=== PATIENT | male | born 1950 | race Caucasian/White ===

== ENCOUNTER 2021-06-14 18:22 | Inpatient (IN) | payer MEDICARE ==
[~2021-06-14] VITALS: Ht 177.8 cm; Wt 74.1 kg
[2021-06-14 18:29] VITALS: BP 134/74
--- NOTE | 2021-06-14 19:00 | NUR ---
The patient, ILIANA ROJAS, 70 y/o, M admitted by EVELIA LEE MD, was given written information regarding hospital policies, unit procedures and contact persons. Valuables were checked and left with him.
[2021-06-14 23:00] VITALS: BP 126/72
[2021-06-15 03:00] VITALS: BP 117/72
[2021-06-15 09:13] VITALS: BP 137/81
[2021-06-15] MEDS: ENOXAPARIN 40 MG/0.4 ML SYRINGE. SQ SCH (09:38)
[2021-06-15] MEDS: ACETAMINOPHEN 325 MG TABLET. PO PRN ×2 (09:39→20:59)
[2021-06-15] MEDS: DEXAMETHASONE SOD PHOS 4 MG/ML VIAL IVP SCH (09:40)
[2021-06-15] MEDS: AZITHROMYCIN 250 MG in IV NORMAL SALINE 250ML 250 ML IV SCH (09:41)
[2021-06-15] MEDS: cefTRIAXone IV Push 1 GM VIAL. IVP SCH (09:42)
--- NOTE | 2021-06-15 10:05 | PDOC ---
PULMONARY PROGRESS NOTES DATE: 06/15/21 TIME: 10:05 Vitals Vital Signs Date Time Temp Pulse Resp B/P (MAP) Pulse Ox O2 Delivery O2 Flow Rate FiO2 06/15/21 09:13 100.1 72 137/81 (99) 96 Nasal Cannula 5.0 100.1 06/15/21 03:00 16 Impression . Full consult dictated Acute hypoxemic respiratory failure, multifactorial Discussed with MIKEY Ge MD Jun 15, 2021 10:05
--- NOTE | 2021-06-15 10:05 | RAD ---
EXAM: Chest, single view. HISTORY: Respiratory failure. COMPARISON: 06/14/2021 FINDINGS: A frontal view of the chest is obtained. There is stable lower lobe predominant increased i nterstitial opacity. There is no consolidation, pleural effusion or pneumothorax. There is a stable c ardiac silhouette. IMPRESSION: Stable lower lobe predominant increased interstitial opacity due to infiltrate or chronic interstitial changes. There is no consolidation. Electronically signed by: Trish Dockery MD (06/15/2021 10:02 AM) [id number]
[2021-06-15 10:47] LABS: HEMATOCRIT 41.3 % (39.0-53.0); HEMOGLOBIN 14.1 g/dL (13.0-17.5); RED BLOOD COUNT 4.49 x10^6/uL (4.30-5.70); RED CELL DISTRIBUTION WIDTH 14.1 % (11.5-14.5); WHITE BLOOD COUNT 5.2 x10^3/uL (4.0-11.0)
--- NOTE | 2021-06-15 10:47 | HP ---
ADMIT DATE: 06/14/2021 HISTORY OF PRESENT ILLNESS: The patient is a 70-year-old male patient who presented to the Emergency Room of [facility] with a complaint of worsening shortness of breath. The patient took a home COVID-19 test 4 days prior to the arrival to the Emergency Room. It was positive. He had symptoms for 2 days before that. He went to his primary care physician, who started him on azithromycin, breathing treatment and prednisone; however, he came to the Emergency Room because these do not seem to be working. He is feeling more short of breath. He has been hospitalized for COVID before. He does not report any fever or chills. His statement was "I just cannot feel like I can breathe." He apparently quit smoking only about 2 weeks ago. He has been a smoker and smokes a pack a day for more than 55 years. He was evaluated in the Emergency Room of [facility] and has lab work, which showed that his white cell count normal. His platelets were in the low normal at 137,000. His chemistry was unrevealing. However, his coronavirus by PCR was positive, confirming his test at home. His chest x-ray showed the patient has normal cardiomediastinal silhouette, bibasilar subsegmental atelectasis versus infiltrate. No pleural effusion, no pneumothorax, no acute osseous abnormality. However, as he was only on 2 liters of oxygen at that time and was transferred to [facility] for further evaluation and treatment, he did receive steroids, azithromycin, ceftriaxone, Lovenox as well as breathing treatment. PAST MEDICAL HISTORY: Significant for COPD. PAST SURGICAL HISTORY: Unremarkable. ALLERGIES: HE IS ALLERGIC TO ASPIRIN. MEDICATIONS: He is not on any medication at home by prescription or [id number]. FAMILY HISTORY: Noncontributory. SOCIAL HISTORY: He is , has 3 daughters. He quit smoking about 2 weeks ago. He smoked a pack a day for almost 55 years. He quit drinking alcohol and using drugs years ago. 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 At home, he normally ambulates without assistance or assistive devices and he is not on any oxygen at home. PHYSICAL EXAMINATION: GENERAL: On arrival to the emergency room, he looked slightly tachypneic, but there was no pallor, jaundice, cyanosis. No lymphadenopathy, no thyromegaly, no jugular venous distention. No lower limb edema. VITAL SIGNS: His heart rate was 68, blood pressure was 122/67, temperature was 99.4, respiratory rate was 22 and oxygen saturation was 97% on 2 liters of oxygen. HEAD, EYES, EARS, NOSE AND THROAT: Normocephalic, atraumatic. NECK: Supple. HEART: Normal first and second heart sounds. No gallop or murmur. CHEST: Shows central trachea, equally reduced expansion, reduced air entry, vesicular breath sounds with bilateral few scattered rhonchi and very few crepitation bilaterally. ABDOMEN: Soft, nontender. NEUROLOGIC: He was grossly intact. LABORATORY DATA: His lab work on arrival to the Emergency Room showed a white cell count of 5800; hemoglobin 14.6; hematocrit 44; MCV 94 and platelet count of 137,000 with a manual differential showed 88% polymorphs, 6% lymphocytes and 6% monocytes. His chemistry showed a serum sodium 133, potassium 3.9, chloride 98, bicarbonate 26, anion gap of 9, BUN 20, creatinine 1.1. Estimated GFR was 66 mL per minute. His glucose 118, calcium was 8.5. Total bilirubin, AST, ALT, alkaline phosphatase were normal. Total protein 7.1, albumin was 3.5. His COVID-19 by PCR was positive. ASSESSMENT AND PLAN: In summary, this is a 70-year-old male patient who was admitted with COVID-19 pneumonia, acute hypoxic respiratory failure and chronic obstructive pulmonary disease exacerbation. Plan is to continue with IV antibiotic in the form of ceftriaxone and Zithromax. Continue with IV dexamethasone. Continue with Lovenox. Continue with the Combivent inhaler together with Tylenol 650 every 4 hours, Mucinex 600 mg twice a day and Singulair 10 mg at bedtime. I have consulted Dr. Desai and he was started also on remdesivir. PORFIRIO/JOANNA/GOSIA DR: PORFIRIO/desi TID: [id number]
[2021-06-15 10:52] LABS: CALCIUM 8.6 mg/dL (8.5-10.1); GFR 74.3; POTASSIUM 4.1 mmol/L (3.5-5.1)
[2021-06-15 10:57] LABS: ALBUMIN/GLOBULIN RATIO 0.8 (1.0-1.7); C-REACTIVE PROTEIN 60.8 mg/L (0-3.3); TOTAL BILIRUBIN 0.3 mg/dL (0.2-1.0); TOTAL PROTEIN 6.8 g/dL (6.4-8.2)
[2021-06-15 11:00] VITALS: BP 96/64
[2021-06-15] MEDS: IPRATROPIUM/ALBUTEROL 20/100mcg/INH INHALER. INH SCH ×3 (11:50→20:58)
[2021-06-15] MEDS ORDERED: REMDESIVIR LOAD in IV NORMAL SALINE 250ML TV IV ONE (12:00)
[2021-06-15 15:00] VITALS: BP 111/70
--- NOTE | 2021-06-15 15:23 | PN ---
DATE: 06/15/2021 SUBJECTIVE: The patient is resting, slightly propped up in bed with shaking chills. He continued to complain of shortness of breath. PHYSICAL EXAMINATION: GENERAL: When I examined him, he was clearly somewhat tachypneic, but there is no pallor, jaundice, cyanosis or thyromegaly. No jugular venous distention. No lower limb edema. VITAL SIGNS: His heart rate was 72, blood pressure was 137/81, temperature was 100.1, respiratory rate was 18 and oxygen saturation was 96% on 5 liters of oxygen. HEAD, EYES, EARS, NOSE AND THROAT: Normocephalic, atraumatic. NECK: Supple. HEART: Showed normal first and second heart sounds. No gallop or murmur. CHEST: Shows central trachea, equally reduced expansion, reduced air entry, vesicular breath sounds, very few scattered rhonchi and bilateral lower lobe crepitation posteriorly. ABDOMEN: Scaphoid, soft, nontender. NEUROLOGIC: He was grossly intact. LABORATORY DATA: His lab work is still pending. ASSESSMENT: 1. COVID-19 pneumonia. 2. Acute hypoxic respiratory failure. 3. Chronic obstructive pulmonary disease exacerbation. PLAN: To continue to do 2 sets of blood culture. We will continue with IV ceftriaxone, IV Zithromax, IV dexamethasone, IV remdesivir. Continue with DVT prophylaxis in the form of Lovenox. I will continue with Singulair, Mucinex and Tylenol. I did consult Dr. Desai to assist with his management. PORFIRIO/JOANNA/WINNIE DR: Star TID: [id number]
--- NOTE | 2021-06-15 15:29 | CONS ---
DATE OF CONSULTATION: 06/15/2021 ATTENDING PHYSICIAN: Caroline Pyle MD CONSULTING PHYSICIAN: Nicole Desai MD REASON FOR CONSULTATION: The patient is seen in Pulmonary consultation at the request of Dr. Pyle for COVID-19 positivity, increasing shortness of breath. HISTORY OF PRESENT ILLNESS: The patient is a 70-year-old that has been smoking all of his adult life, presented to [facility] with increasing shortness of breath. He was evaluated and found to have a positive COVID testing, abnormal x-ray. I was asked to see him in consultation. The patient states that he quit tobacco approximately 2 weeks ago, he was having some difficulty with shortness of breath. He normally utilizes Combivent at home. He sees Dr. Wellington Santos. The patient has not been vaccinated. He states that his at home had similar symptoms, was tested positive for COVID. PAST MEDICAL HISTORY: Tobacco-dependent COPD, unknown FEV1. No prior history of coronary artery disease. Denies any excessive alcohol intake. No musculoskeletal disorders. No endocrine disorders. PAST SURGICAL HISTORY: None. ALLERGIES: ASPIRIN. REVIEW OF SYSTEMS: As indicated above. Otherwise, a 10-point system was reviewed and negative. CURRENT MEDICATIONS: List was reviewed. I discussed the case with Dr. Pyle. We placed him on Zithromax, Rocephin, dexamethasone, Lovenox. We will initiate remdesivir. PHYSICAL EXAMINATION: GENERAL: The patient is seen during the COVID-19 pandemic. On visual examination, he was in mild respiratory distress, able to complete full sentences. He was having periods of chills, no paroxysmal breathing pattern. O2 saturation was greater than 92% on 5 liters. VITAL SIGNS: On examination, the patient had a fever of 100.1. HEENT: Eyes: The sclerae were nonicteric. NECK: Jugular venous distention was not ____. LABORATORY DATA: Labs and chest x-rays are pending. IMPRESSION: 1. Acute hypoxemic respiratory failure, multifactorial. 2. COVID-19 viral pneumonia. 3. Possible bacterial pneumonia. 4. Acute exacerbation of chronic obstructive pulmonary disease. 5. Fever secondary to above. 6. Tobacco dependence. 7. Underlying chronic obstructive pulmonary disease, unknown forced expiratory volume 1. PLAN: 1. As discussed above with Dr. Pyle, we will continue support with steroids and antibiotics. 2. Initiate remdesivir. 3. Blood cultures. 4. DVT prophylaxis. 5. Nebulized treatments. I stressed the importance of obtaining COVID-19 vaccination in approximately 8 weeks after this admission. I do appreciate the privilege in sharing the patient's care. AMINAH/RYDER/[facility] [place] DR: Cherie TID: [id number]
[2021-06-15 19:00] VITALS: BP 119/67
[2021-06-15] MEDS: MONTELUKAST SODIUM 10 MG TABLET. PO SCH (20:58)
[2021-06-15 23:05] VITALS: BP 109/62
[2021-06-16 03:00] VITALS: BP 118/70
[2021-06-16 07:00] VITALS: BP 108/72
--- NOTE | 2021-06-16 09:12 | PDOC ---
PULMONARY PROGRESS NOTES DATE: 06/16/21 TIME: 09:12 Subjective Pt. on 3 liters NC afebrile no increased SOA or cough Vitals Vital Signs Date Time Temp Pulse Resp B/P (MAP) Pulse Ox O2 Delivery O2 Flow Rate FiO2 06/16/21 07:00 98.3 68 18 108/72 (84) 96 Nasal Cannula 3.0 98.3 Comments pt seen during covid-19 pandemic visual exam performed rrr on nc 02 no distress no obvious rash or edema Labs Laboratory Tests Test 06/15/21 10:20 White Blood Count 5.2 x10^3/uL (4.0-11.0) Red Blood Count 4.49 x10^6/uL (4.30-5.70) Hemoglobin 14.1 g/dL (13.0-17.5) Hematocrit 41.3 % (39.0-53.0) Mean Corpuscular Volume 92 fL (79-100) Mean Corpuscular Hemoglobin 32 pg (25-35) Mean Corpuscular Hemoglobin Concent 34 g/dL (31-37) Red Cell Distribution Width 14.1 % (11.5-14.5) Platelet Count 134 x10^3/uL (140-400) D-Dimer (Valencia) 0.47 ug/mlFEU (0.00-0.50) Sodium Level 130 mmol/L (136-145) Potassium Level 4.1 mmol/L (3.5-5.1) Chloride Level 99 mmol/L (98-107) Carbon Dioxide Level 22 mmol/L (21-32) Anion Gap 9 (6-14) Blood Urea Nitrogen 24 mg/dL (8-26) Creatinine 1.0 mg/dL (0.7-1.3) Estimated GFR (Cockcroft-Gault) 74.3 BUN/Creatinine Ratio 24 (6-20) Glucose Level 92 mg/dL (70-99) Calcium Level 8.6 mg/dL (8.5-10.1) Total Bilirubin 0.3 mg/dL (0.2-1.0) Aspartate Amino Transf (AST/SGOT) 34 U/L (15-37) Alanine Aminotransferase (ALT/SGPT) 27 U/L (16-63) Alkaline Phosphatase 67 U/L (46-116) C-Reactive Protein, Quantitative 60.8 mg/L (0-3.3) Total Protein 6.8 g/dL (6.4-8.2) Albumin 3.0 g/dL (3.4-5.0) Albumin/Globulin Ratio 0.8 (1.0-1.7) Laboratory Tests Test 06/15/21 10:20 White Blood Count 5.2 x10^3/uL (4.0-11.0) Red Blood Count 4.49 x10^6/uL (4.30-5.70) Hemoglobin 14.1 g/dL (13.0-17.5) Hematocrit 41.3 % (39.0-53.0) Mean Corpuscular Volume 92 fL (79-100) Mean Corpuscular Hemoglobin 32 pg (25-35) Mean Corpuscular Hemoglobin Concent 34 g/dL (31-37) Red Cell Distribution Width 14.1 % (11.5-14.5) Platelet Count 134 x10^3/uL (140-400) D-Dimer (Valencia) 0.47 ug/mlFEU (0.00-0.50) Sodium Level 130 mmol/L (136-145) Potassium Level 4.1 mmol/L (3.5-5.1) Chloride Level 99 mmol/L (98-107) Carbon Dioxide Level 22 mmol/L (21-32) Anion Gap 9 (6-14) Blood Urea Nitrogen 24 mg/dL (8-26) Creatinine 1.0 mg/dL (0.7-1.3) Estimated GFR (Cockcroft-Gault) 74.3 BUN/Creatinine Ratio 24 (6-20) Glucose Level 92 mg/dL (70-99) Calcium Level 8.6 mg/dL (8.5-10.1) Total Bilirubin 0.3 mg/dL (0.2-1.0) Aspartate Amino Transf (AST/SGOT) 34 U/L (15-37) Alanine Aminotransferase (ALT/SGPT) 27 U/L (16-63) Alkaline Phosphatase 67 U/L (46-116) C-Reactive Protein, Quantitative 60.8 mg/L (0-3.3) Total Protein 6.8 g/dL (6.4-8.2) Albumin 3.0 g/dL (3.4-5.0) Albumin/Globulin Ratio 0.8 (1.0-1.7) Impression . IMPRESSION: 1. Acute hypoxemic respiratory failure, multifactorial. 2. COVID-19 viral pneumonia. 3. Possible bacterial pneumonia. 4. Acute exacerbation of chronic obstructive pulmonary disease. 5. Fever secondary to above. 6. Tobacco dependence. 7. Underlying chronic obstructive pulmonary disease, unknown forced expiratory volume 1. Plan . Updated 06/16/21 Continue supplemental oxygen to keep sats above 92%, on 3 liters NC Continue remdesivir. Continue steroids started on 06/15/21 Continue ABX on azithro/rocephin BC NGTD DVT/GI PPX:lovenox D/W RN 06/15/21PLAN: 1. As discussed above with Dr. Pyle, we will continue support with steroids and antibiotics. 2. Initiate remdesivir. 3. Blood cultures. 4. DVT prophylaxis. 5. Nebulized treatments. MIKEY CONTI MD Jun 16, 2021 09:12
[2021-06-16] MEDS: IPRATROPIUM/ALBUTEROL 20/100mcg/INH INHALER. INH SCH ×4 (09:56→21:07)
[2021-06-16] MEDS: ENOXAPARIN 40 MG/0.4 ML SYRINGE. SQ SCH (09:57)
[2021-06-16] MEDS: cefTRIAXone IV Push 1 GM VIAL. IVP SCH (09:57)
[2021-06-16] MEDS: DEXAMETHASONE SOD PHOS 4 MG/ML VIAL IVP SCH (09:57)
[2021-06-16 09:58] LABS: HEMATOCRIT 41.2 % (39.0-53.0); RED BLOOD COUNT 4.49 x10^6/uL (4.30-5.70); RED CELL DISTRIBUTION WIDTH 13.9 % (11.5-14.5); WHITE BLOOD COUNT 3.8 x10^3/uL (4.0-11.0)
[2021-06-16 10:29] LABS: ALBUMIN 2.8 g/dL (3.4-5.0); ALBUMIN/GLOBULIN RATIO 0.7 (1.0-1.7); CALCIUM 8.6 mg/dL (8.5-10.1); CREATININE 0.9 mg/dL (0.7-1.3); GFR 83.9; POTASSIUM 4.1 mmol/L (3.5-5.1); TOTAL BILIRUBIN 0.3 mg/dL (0.2-1.0); TOTAL PROTEIN 6.6 g/dL (6.4-8.2)
[2021-06-16 11:00] VITALS: BP 110/65
[2021-06-16] MEDS: AZITHROMYCIN 250 MG in IV NORMAL SALINE 250ML 250 ML IV SCH (11:34)
[2021-06-16] MEDS: REMDESIVIR 100mg in NORMAL SALINE 250ML X 4 DAYS IV SCH (12:50)
--- NOTE | 2021-06-16 13:47 | NUR ---
SW following. Discussed with RN, pt from home, 3L (does not use oxygen at home), COVID-19 positive, ad rodrick. Pulmonology following. RN advised no SW needs at this time. SW will continue to follow.
[2021-06-16 15:00] VITALS: BP 127/67
--- NOTE | 2021-06-16 16:39 | PN ---
DATE: 06/16/2021 ____ Continue with IV dexamethasone. Continue with remdesivir. Continue with Lovenox for DVT prophylaxis. Continue with Mucinex and Singulair. Continue with oxygen supplementation as needed. PORFIRIO/JOANNA/[facility] [place] DR: PORFIRIO/desi TID: [id number]
[2021-06-16 19:00] VITALS: BP 126/84
[2021-06-16] MEDS: MONTELUKAST SODIUM 10 MG TABLET. PO SCH (21:06)
[2021-06-16 23:00] VITALS: BP 138/78
[2021-06-17 03:00] VITALS: BP 122/77
[2021-06-17 07:00] VITALS: BP 123/79
[2021-06-17] MEDS: IPRATROPIUM/ALBUTEROL 20/100mcg/INH INHALER. INH SCH ×4 (08:11→20:25)
[2021-06-17] MEDS: cefTRIAXone IV Push 1 GM VIAL. IVP SCH ×2 (09:00→09:08)
[2021-06-17] MEDS: ENOXAPARIN 40 MG/0.4 ML SYRINGE. SQ SCH (09:08)
[2021-06-17] MEDS: DEXAMETHASONE SOD PHOS 4 MG/ML VIAL IVP SCH (09:08)
--- NOTE | 2021-06-17 09:13 | NUR ---
This RN informed Dr. Pyle of pt's new rash noted to posterior upper legs. Dr. Pyle in room, updated this RN he is going to discontinue Rocephin due to rash. Pt's 0900 dose of Rocephin nonadministered by this RN. Will await new orders.
--- NOTE | 2021-06-17 09:59 | PN ---
DATE: 06/17/2021 SUBJECTIVE: The patient is resting, slightly popped up in bed, complaining of a pruritic skin rash mostly on his lower extremities and also on the torso. He also stated that he has been coughing the whole night. Denied any chest pain. Did complain of shortness of breath. PHYSICAL EXAMINATION: GENERAL: When I saw him, he was somewhat cachectic, but there was no pallor, jaundice, cyanosis or thyromegaly. No jugular venous distention. No lower limb edema. VITAL SIGNS: His heart rate was 60, blood pressure is 122/77, temperature was 98, respiratory rate was 18 and oxygen saturation was only 84% on 3 liters of oxygen when I saw him. I did increase his oxygen to 5, 10, and 15 and he continued to do poorly and was only at 89%, so we will start him on 100% nonrebreather mask. We did consult the customer service advocate and the plan is to put him on BiPAP or Vapotherm. HEAD, EYES, EARS, NOSE, AND THROAT: Normocephalic, atraumatic. NECK: Supple. HEART: Showed normal first and second heart sounds, no gallop or murmur. CHEST: Shows central trachea, equally reduced chest expansion, reduced air entry, vesicular breath sounds. Very few scattered rhonchi. I could not appreciate any crepitation. ABDOMEN: Scaphoid, soft, nontender. NEUROLOGIC: He was grossly intact. LABORATORY DATA: His lab work as of yesterday showed a white cell count of 3800, hemoglobin 14, hematocrit 41, MCV 92 and platelet count of 131,000. His serum sodium was 134, potassium 4.1, chloride 100, bicarbonate 25, anion gap of 9, BUN 24, creatinine 0.9. Estimated GFR was 84 mL per minute. His glucose was 140, calcium was 8.6. Total bilirubin, AST, ALT, alkaline phosphatase were normal. Total protein 6.6, albumin 2.8 as of yesterday. His C-reactive protein was 60.8 and his D-dimer was 0.47. His chest x-ray showed stable lower lobe predominantly increased interstitial opacity. There is no consolidation, pleural effusion, or pneumothorax. Stable cardiac silhouette. ASSESSMENT: This is a 70-year-old male patient who was admitted with: 1. COVID-19 pneumonia. 2. Acute hypoxic respiratory failure. 3. Chronic obstructive pulmonary disease exacerbation. 4. SOME FORM OF ALLERGIC REACTION, MOST LIKELY TO ROCEPHIN. PLAN: To discontinue the ceftriaxone and Zithromax. Continue with dexamethasone. Continue with remdesivir. Continue with DVT prophylaxis. He is also continue with Singulair, Mucinex and Tylenol. I will start him on Levaquin and I have spoken with the customer service advocate and he recommended starting him on either BiPAP machine and/or Vapotherm. PORFIRIO/[facility] DR: Star TID: [id number]
--- NOTE | 2021-06-17 10:06 | RAD ---
EXAM: Chest, single view. HISTORY: Hypoxia. COMPARISON: 06/15/2021 FINDINGS: A frontal view of the chest is obtained. There has been interval increase in right and left lower lobe interstitial infiltrate superimposed on emphysema and chronic interstitial changes. There is no pleural effusion or pneumothorax. There is a stable cardiac silhouette. IMPRESSION: Increase in right greater than left lower lobe interstitial infiltrate superimposed on em physema and chronic interstitial changes. Electronically signed by: Trish Dockery MD (06/17/2021 10:03 AM) [id number]
--- NOTE | 2021-06-17 10:15 | PDOC ---
PULMONARY PROGRESS NOTES DATE: 06/17/21 TIME: 10:12 Subjective pt with increasing dyspnea/ hypoxia on 15 litres O2 Vitals Vital Signs Date Time Temp Pulse Resp B/P (MAP) Pulse Ox O2 Delivery O2 Flow Rate FiO2 06/17/21 08:21 Nasal Cannula 3.0 06/17/21 07:00 97.8 67 18 123/79 (94) 90 97.8 Comments pt seen during covid-19 pandemic visual exam performed rrr on nc 02 no distress no obvious rash or edema Labs Laboratory Tests Test 06/15/21 10:20 06/16/21 09:30 White Blood Count 5.2 x10^3/uL (4.0-11.0) 3.8 x10^3/uL (4.0-11.0) Red Blood Count 4.49 x10^6/uL (4.30-5.70) 4.49 x10^6/uL (4.30-5.70) Hemoglobin 14.1 g/dL (13.0-17.5) 14.0 g/dL (13.0-17.5) Hematocrit 41.3 % (39.0-53.0) 41.2 % (39.0-53.0) Mean Corpuscular Volume 92 fL (79-100) 92 fL (79-100) Mean Corpuscular Hemoglobin 32 pg (25-35) 31 pg (25-35) Mean Corpuscular Hemoglobin Concent 34 g/dL (31-37) 34 g/dL (31-37) Red Cell Distribution Width 14.1 % (11.5-14.5) 13.9 % (11.5-14.5) Platelet Count 134 x10^3/uL (140-400) 131 x10^3/uL (140-400) D-Dimer (Valencia) 0.47 ug/mlFEU (0.00-0.50) Sodium Level 130 mmol/L (136-145) 134 mmol/L (136-145) Potassium Level 4.1 mmol/L (3.5-5.1) 4.1 mmol/L (3.5-5.1) Chloride Level 99 mmol/L (98-107) 100 mmol/L (98-107) Carbon Dioxide Level 22 mmol/L (21-32) 25 mmol/L (21-32) Anion Gap 9 (6-14) 9 (6-14) Blood Urea Nitrogen 24 mg/dL (8-26) 24 mg/dL (8-26) Creatinine 1.0 mg/dL (0.7-1.3) 0.9 mg/dL (0.7-1.3) Estimated GFR (Cockcroft-Gault) 74.3 83.9 BUN/Creatinine Ratio 24 (6-20) 27 (6-20) Glucose Level 92 mg/dL (70-99) 140 mg/dL (70-99) Calcium Level 8.6 mg/dL (8.5-10.1) 8.6 mg/dL (8.5-10.1) Total Bilirubin 0.3 mg/dL (0.2-1.0) 0.3 mg/dL (0.2-1.0) Aspartate Amino Transf (AST/SGOT) 34 U/L (15-37) 54 U/L (15-37) Alanine Aminotransferase (ALT/SGPT) 27 U/L (16-63) 54 U/L (16-63) Alkaline Phosphatase 67 U/L (46-116) 65 U/L (46-116) C-Reactive Protein, Quantitative 60.8 mg/L (0-3.3) Total Protein 6.8 g/dL (6.4-8.2) 6.6 g/dL (6.4-8.2) Albumin 3.0 g/dL (3.4-5.0) 2.8 g/dL (3.4-5.0) Albumin/Globulin Ratio 0.8 (1.0-1.7) 0.7 (1.0-1.7) Impression . IMPRESSION: 1. Acute hypoxemic respiratory failure, multifactorial. 2. COVID-19 viral pneumonia. 3. Possible bacterial pneumonia. 4. Acute exacerbation of chronic obstructive pulmonary disease. 5. Fever secondary to above. 6. Tobacco dependence. 7. Underlying chronic obstructive pulmonary disease, unknown forced expiratory volume 1. Plan . Updated 06/17/21 transfer to 6 floor, on vapotherm, keep sats above 92%, Continue remdesivir. Continue steroids started on 06/15/21 Continue ABX on azithro/rocephin BC NGTD DVT/GI PPX:lovenox D/W RN d/w Dr Pyle code status discussed. He wants to think about DNR Updated 06/16/21 Continue supplemental oxygen to keep sats above 92%, on 3 liters NC Continue remdesivir. Continue steroids started on 06/15/21 Continue ABX on azithro/rocephin BC NGTD DVT/GI PPX:lovenox D/W RN 06/15/21PLAN: 1. As discussed above with Dr. Pyle, we will continue support with steroids and antibiotics. 2. Initiate remdesivir. 3. Blood cultures. 4. DVT prophylaxis. 5. Nebulized treatments. RICO WISE MD Jun 17, 2021 10:15
--- NOTE | 2021-06-17 10:26 | NUR ---
Dr. Pyle requested sat probe from this RN to perform a spot check spO2 on pt at approx 0920. Dr. Pyle reported that pt's spO2 was 84% on 3L NC. Pt's oxygen increased to 5L NC, no response noted. Dr. Pyle then increased pt to 15L NC and pt's spO2 increased to 90%. This RN placed pt on 15L nonrebreather and pt's spO2 further increased to 94%. Dr. Topete came into pt's room and gave orders for vapotherm. Orders for STAT chest xray placed by Dr. Pyle. Dr. Pyle called and updated Farzana, pt's daughter. This RN also spoke with and updated Farzana. This RN notified Josefina RT and Rebeca, nursing supervisor beater room. Pt to transfer to room 671.
--- NOTE | 2021-06-17 11:40 | NUR ---
Pt transferred to room 671 by wheelchair at 1130. This RN called and updated Farzana, pt's daughter of transfer at [phone]. Pt's belongings sent with pt at time of transfer.
--- NOTE | 2021-06-17 12:47 | NUR ---
SW following. Discussed with RN, pt transferring to [address] [place] [address] due to going from 3L to a 15L NRB and still needing more oxygen. Pt needing Vapotherm or Bipap. Pt is ad rodrick. RN advised no SW needs at this time. SW will continue to follow.
[2021-06-17] MEDS: REMDESIVIR 100mg in NORMAL SALINE 250ML X 4 DAYS IV SCH (13:45)
[2021-06-17 15:00] VITALS: BP 111/74
[2021-06-17 19:05] VITALS: BP 115/73
[2021-06-17] MEDS: LACTOBACILLUS RHAMNOSUS GG 1 CAPSULE. PO SCH (20:25)
[2021-06-17] MEDS: NICOTINE 21MG PATCH. TD SCH (20:25)
[2021-06-17] MEDS: MONTELUKAST SODIUM 10 MG TABLET. PO SCH (20:25)
[2021-06-17 23:15] VITALS: BP 121/75
[2021-06-18 02:08] VITALS: BP 119/78
[2021-06-18 07:00] VITALS: BP 136/80
[2021-06-18 07:20] LABS: BASO % 0 % (0-3); EOS % 0 % (0-3); HEMATOCRIT 41.8 % (39.0-53.0); HEMOGLOBIN 14.1 g/dL (13.0-17.5); LYMPH # 0.6 x10^3/uL (1.0-4.8); LYMPH % 14 % (24-48); MEAN CORPUSCULAR HEMOGLOBIN 31 pg (25-35); MEAN CORPUSCULAR HGB CONC 34 g/dL (31-37); MEAN CORPUSCULAR VOLUME 92 fL (79-100); MONO # 0.7 x10^3/uL (0.0-1.1); MONO % 16 % (0-9); NEUT # 3.1 x10^3/uL (1.8-7.7); NEUT % 70 % (31-73); PLATELET COUNT 161 x10^3/uL (140-400); RED BLOOD COUNT 4.55 x10^6/uL (4.30-5.70); RED CELL DISTRIBUTION WIDTH 14.2 % (11.5-14.5); WHITE BLOOD COUNT 4.5 x10^3/uL (4.0-11.0)
[2021-06-18 07:49] LABS: ALBUMIN 2.7 g/dL (3.4-5.0); ALBUMIN/GLOBULIN RATIO 0.8 (1.0-1.7); CALCIUM 8.8 mg/dL (8.5-10.1); CREATININE 0.8 mg/dL (0.7-1.3); GFR 96.1; POTASSIUM 4.5 mmol/L (3.5-5.1); TOTAL BILIRUBIN 0.3 mg/dL (0.2-1.0); TOTAL PROTEIN 6.2 g/dL (6.4-8.2)
[2021-06-18] MEDS: IPRATROPIUM/ALBUTEROL 20/100mcg/INH INHALER. INH SCH ×3 (09:10→16:51)
[2021-06-18] MEDS: DEXAMETHASONE SOD PHOS 4 MG/ML VIAL IVP SCH (09:14)
[2021-06-18] MEDS: LACTOBACILLUS RHAMNOSUS GG 1 CAPSULE. PO SCH ×2 (09:15→22:08)
[2021-06-18] MEDS: NICOTINE 21MG PATCH. TD SCH (09:16)
[2021-06-18] MEDS: ENOXAPARIN 40 MG/0.4 ML SYRINGE. SQ SCH (09:16)
--- NOTE | 2021-06-18 10:03 | PDOC ---
PULMONARY PROGRESS NOTES DATE: 06/18/21 TIME: 09:59 Subjective Patient appears more comfortable. Currently on 100% FiO2 via Vapotherm and at 40 L flow. Denies any increased shortness of breath Vitals Vital Signs Date Time Temp Pulse Resp B/P (MAP) Pulse Ox O2 Delivery O2 Flow Rate FiO2 06/18/21 07:15 91 VAPOTHERM 40.0 06/18/21 07:00 97.6 65 18 136/80 (98) 97.6 Comments pt seen during covid- pandemic visual exam performed rrr on no distress no obvious rash or edema Labs Laboratory Tests Test 06/18/21 07:00 White Blood Count 4.5 x10^3/uL (4.0-11.0) Red Blood Count 4.55 x10^6/uL (4.30-5.70) Hemoglobin 14.1 g/dL (13.0-17.5) Hematocrit 41.8 % (39.0-53.0) Mean Corpuscular Volume 92 fL (79-100) Mean Corpuscular Hemoglobin 31 pg (25-35) Mean Corpuscular Hemoglobin Concent 34 g/dL (31-37) Red Cell Distribution Width 14.2 % (11.5-14.5) Platelet Count 161 x10^3/uL (140-400) Neutrophils (%) (Auto) 70 % (31-73) Lymphocytes (%) (Auto) 14 % (24-48) Monocytes (%) (Auto) 16 % (0-9) Eosinophils (%) (Auto) 0 % (0-3) Basophils (%) (Auto) 0 % (0-3) Neutrophils # (Auto) 3.1 x10^3/uL (1.8-7.7) Lymphocytes # (Auto) 0.6 x10^3/uL (1.0-4.8) Monocytes # (Auto) 0.7 x10^3/uL (0.0-1.1) Eosinophils # (Auto) 0.0 x10^3/uL (0.0-0.7) Basophils # (Auto) 0.0 x10^3/uL (0.0-0.2) Sodium Level 133 mmol/L (136-145) Potassium Level 4.5 mmol/L (3.5-5.1) Chloride Level 100 mmol/L (98-107) Carbon Dioxide Level 23 mmol/L (21-32) Anion Gap 10 (6-14) Blood Urea Nitrogen 26 mg/dL (8-26) Creatinine 0.8 mg/dL (0.7-1.3) Estimated GFR (Cockcroft-Gault) 96.1 BUN/Creatinine Ratio 33 (6-20) Glucose Level 123 mg/dL (70-99) Calcium Level 8.8 mg/dL (8.5-10.1) Total Bilirubin 0.3 mg/dL (0.2-1.0) Aspartate Amino Transf (AST/SGOT) 67 U/L (15-37) Alanine Aminotransferase (ALT/SGPT) 86 U/L (16-63) Alkaline Phosphatase 67 U/L (46-116) Total Protein 6.2 g/dL (6.4-8.2) Albumin 2.7 g/dL (3.4-5.0) Albumin/Globulin Ratio 0.8 (1.0-1.7) Laboratory Tests Test 06/18/21 07:00 White Blood Count 4.5 x10^3/uL (4.0-11.0) Red Blood Count 4.55 x10^6/uL (4.30-5.70) Hemoglobin 14.1 g/dL (13.0-17.5) Hematocrit 41.8 % (39.0-53.0) Mean Corpuscular Volume 92 fL (79-100) Mean Corpuscular Hemoglobin 31 pg (25-35) Mean Corpuscular Hemoglobin Concent 34 g/dL (31-37) Red Cell Distribution Width 14.2 % (11.5-14.5) Platelet Count 161 x10^3/uL (140-400) Neutrophils (%) (Auto) 70 % (31-73) Lymphocytes (%) (Auto) 14 % (24-48) Monocytes (%) (Auto) 16 % (0-9) Eosinophils (%) (Auto) 0 % (0-3) Basophils (%) (Auto) 0 % (0-3) Neutrophils # (Auto) 3.1 x10^3/uL (1.8-7.7) Lymphocytes # (Auto) 0.6 x10^3/uL (1.0-4.8) Monocytes # (Auto) 0.7 x10^3/uL (0.0-1.1) Eosinophils # (Auto) 0.0 x10^3/uL (0.0-0.7) Basophils # (Auto) 0.0 x10^3/uL (0.0-0.2) Sodium Level 133 mmol/L (136-145) Potassium Level 4.5 mmol/L (3.5-5.1) Chloride Level 100 mmol/L (98-107) Carbon Dioxide Level 23 mmol/L (21-32) Anion Gap 10 (6-14) Blood Urea Nitrogen 26 mg/dL (8-26) Creatinine 0.8 mg/dL (0.7-1.3) Estimated GFR (Cockcroft-Gault) 96.1 BUN/Creatinine Ratio 33 (6-20) Glucose Level 123 mg/dL (70-99) Calcium Level 8.8 mg/dL (8.5-10.1) Total Bilirubin 0.3 mg/dL (0.2-1.0) Aspartate Amino Transf (AST/SGOT) 67 U/L (15-37) Alanine Aminotransferase (ALT/SGPT) 86 U/L (16-63) Alkaline Phosphatase 67 U/L (46-116) Total Protein 6.2 g/dL (6.4-8.2) Albumin 2.7 g/dL (3.4-5.0) Albumin/Globulin Ratio 0.8 (1.0-1.7) Impression . IMPRESSION: 1. Acute hypoxemic respiratory failure due to ARDS/acute lung injury from COVID-19 viral pneumonia. 2. COVID-19 viral pneumonia. 3. Possible bacterial pneumonia. 4. Acute exacerbation of chronic obstructive pulmonary disease. 5. Fever secondary to above. 6. Tobacco dependence. 7. Underlying chronic obstructive pulmonary disease, unknown forced expiratory volume 1. Plan . Updated 06/17/21 Tolerating Vapotherm well. On 100% FiO2 and 40 L flow. Continue remdesivir. Continue steroids started on 06/15/21 Continue ABX on azithro/rocephin BC NGTD DVT/GI PPX:lovenox D/W RN d/w Dr Pyle code status discussed. He wants to think about DNR Updated 06/17/21 transfer to 6 floor, on vapotherm, keep sats above 92%, Continue remdesivir. Continue steroids started on 06/15/21 Continue ABX on azithro/rocephin BC NGTD DVT/GI PPX:lovenox D/W RN d/w Dr Pyle code status discussed. He wants to think about DNR Updated 06/16/21 Continue supplemental oxygen to keep sats above 92%, on 3 liters NC Continue remdesivir. Continue steroids started on 06/15/21 Continue ABX on azithro/rocephin BC NGTD DVT/GI PPX:lovenox D/W RN 06/15/21PLAN: 1. As discussed above with Dr. Pyle, we will continue support with steroids and antibiotics. 2. Initiate remdesivir. 3. Blood cultures. 4. DVT prophylaxis. 5. Nebulized treatments. RICO WISE MD Jun 18, 2021 10:03
[2021-06-18 10:29] LABS: PLT ESTIMATE ADEQUATE (ADEQUATE)
--- NOTE | 2021-06-18 10:33 | PN ---
DATE: 06/18/2021 SUBJECTIVE: The patient is resting slightly up in bed, on Vapotherm, maintaining his oxygen saturation at 89-90% on 40 liters of oxygen and FiO2 of 100%. On questioning, however, he denied any chest pain, shortness of breath, cough or phlegm. However, he could not sleep the whole night last night because of the noises made by the machine. Also complained of anorexia and poor appetite. PHYSICAL EXAMINATION: GENERAL: When I examined him, he looked cachectic. There is no pallor, jaundice, cyanosis or thyromegaly. No jugular venous distention. No lower limb edema. VITAL SIGNS: His heart rate was 65, blood pressure is 136/80, temperature 97.6, respiratory rate was 18 and oxygen saturation was 90% on Vapotherm at a flow rate of 40 liters and FiO2 of 100%. HEAD, EYES, EARS, NOSE, AND THROAT: Normocephalic, atraumatic. NECK: Supple. HEART: Normal first and second heart sounds. No gallop or murmur. CHEST: Shows central trachea, equally reduced expansion, reduced air entry, vesicular breath sounds, very few scattered rhonchi, could not appreciate any crepitation. ABDOMEN: Distended, soft, nontender. NEUROLOGIC: He was grossly intact. His intake was 1200, output was 1100. LABORATORY DATA: As of this morning, his white cell count was 4500, hemoglobin 14, hematocrit 42, MCV 92 and platelet count of 161,000. His serum sodium was 133, potassium 4.5, chloride 100, bicarbonate 23, anion gap of 10, BUN 26, creatinine 0.8. Estimated GFR was 96 mL per minute. His glucose 123, calcium was 8.8. Total bilirubin and alkaline phosphatase are normal. AST and ALT slightly elevated. Total protein 6.2, albumin 2.7. ASSESSMENT: 1. Acute hypoxic respiratory failure. 2. COVID-19 pneumonia. 3. Chronic obstructive pulmonary disease exacerbation. 4. ALLERGIC REACTION, MOST LIKELY TO ROCEPHIN. PLAN: To continue with dexamethasone. Continue with remdesivir. Continue with DVT prophylaxis. He is also on Singulair, Mucinex and Tylenol. I will start him on Levaquin. He is now on Vapotherm at 40 liters and FiO2 of 100%. His skin rash is slightly better. I will add also Benadryl for itching. AMM/HIPOLITO DR: Star TID: [id number]
[2021-06-18 11:00] VITALS: BP 166/68
--- NOTE | 2021-06-18 11:11 | NUR ---
SS following up with discharge planning. SS reviewed pt chart and discussed with pt RN. Pt is currently on Vapotherm at 40 liters. COVID19 positive. Pt on IV Levaquin, IV Remdesivir, and IV Decadron. DPOA paperwork requested and provided by family. SS met with pt and all paperwork was completed and notarized. Pt's daughter notified. SS will continue to follow for discharge planning.
[2021-06-18] MEDS: REMDESIVIR 100mg in NORMAL SALINE 250ML X 4 DAYS IV SCH (12:38)
[2021-06-18 15:00] VITALS: BP 111/69
[2021-06-18] MEDS: diphenhydrAMINE HCL 25 MG CAPSULE PO PRN (15:01)
[2021-06-18] MEDS ORDERED: diphenhydrAMINE HCL 25 MG CAPSULE PO ONE (15:30)
[2021-06-18] MEDS ORDERED: DEXAMETHASONE SOD PHOS 4 MG/ML VIAL IVP ONE (15:30)
[2021-06-18] MEDS: STERILE WATER for RESP 1,000 ML BAG. INH PRN (15:45)
[2021-06-18 19:45] VITALS: BP 145/86
[2021-06-18] MEDS: traZODone 50 MG TABLET. PO SCH (22:08)
[2021-06-18] MEDS: MONTELUKAST SODIUM 10 MG TABLET. PO SCH (22:09)
[2021-06-18 22:22] VITALS: BP 134/89
[2021-06-19 03:25] VITALS: BP 140/75
[2021-06-19 07:00] VITALS: BP 136/80
[2021-06-19] MEDS: IPRATROPIUM/ALBUTEROL 20/100mcg/INH INHALER. INH SCH ×5 (08:00→21:13)
[2021-06-19] MEDS: LACTOBACILLUS RHAMNOSUS GG 1 CAPSULE. PO SCH ×2 (08:30→21:13)
[2021-06-19] MEDS: NICOTINE 21MG PATCH. TD SCH (08:31)
[2021-06-19] MEDS: DEXAMETHASONE SOD PHOS 4 MG/ML VIAL IVP SCH (08:31)
[2021-06-19] MEDS: ENOXAPARIN 40 MG/0.4 ML SYRINGE. SQ SCH (08:32)
[2021-06-19] MEDS: diphenhydrAMINE HCL 25 MG CAPSULE PO PRN (08:44)
--- NOTE | 2021-06-19 09:50 | PDOC ---
PULMONARY PROGRESS NOTES DATE: 06/19/21 TIME: 09:49 Subjective Patient appears more comfortable. Currently on 100% FiO2 via Vapotherm and at 40 L flow. Denies any increased shortness of breath Vitals Vital Signs Date Time Temp Pulse Resp B/P (MAP) Pulse Ox O2 Delivery O2 Flow Rate FiO2 06/19/21 07:55 93 VAPOTHERM 40.0 06/19/21 07:00 96.5 70 18 136/80 (98) 96.5 Comments pt seen during covid- pandemic visual exam performed rrr on no distress no obvious rash or edema Labs Laboratory Tests Test 06/18/21 07:00 White Blood Count 4.5 x10^3/uL (4.0-11.0) Red Blood Count 4.55 x10^6/uL (4.30-5.70) Hemoglobin 14.1 g/dL (13.0-17.5) Hematocrit 41.8 % (39.0-53.0) Mean Corpuscular Volume 92 fL (79-100) Mean Corpuscular Hemoglobin 31 pg (25-35) Mean Corpuscular Hemoglobin Concent 34 g/dL (31-37) Red Cell Distribution Width 14.2 % (11.5-14.5) Platelet Count 161 x10^3/uL (140-400) Neutrophils (%) (Auto) 70 % (31-73) Lymphocytes (%) (Auto) 14 % (24-48) Monocytes (%) (Auto) 16 % (0-9) Eosinophils (%) (Auto) 0 % (0-3) Basophils (%) (Auto) 0 % (0-3) Neutrophils # (Auto) 3.1 x10^3/uL (1.8-7.7) Lymphocytes # (Auto) 0.6 x10^3/uL (1.0-4.8) Monocytes # (Auto) 0.7 x10^3/uL (0.0-1.1) Eosinophils # (Auto) 0.0 x10^3/uL (0.0-0.7) Basophils # (Auto) 0.0 x10^3/uL (0.0-0.2) Platelet Estimate Adequate (ADEQUATE) Large Platelets Few Giant Platelets Occ Sodium Level 133 mmol/L (136-145) Potassium Level 4.5 mmol/L (3.5-5.1) Chloride Level 100 mmol/L (98-107) Carbon Dioxide Level 23 mmol/L (21-32) Anion Gap 10 (6-14) Blood Urea Nitrogen 26 mg/dL (8-26) Creatinine 0.8 mg/dL (0.7-1.3) Estimated GFR (Cockcroft-Gault) 96.1 BUN/Creatinine Ratio 33 (6-20) Glucose Level 123 mg/dL (70-99) Calcium Level 8.8 mg/dL (8.5-10.1) Total Bilirubin 0.3 mg/dL (0.2-1.0) Aspartate Amino Transf (AST/SGOT) 67 U/L (15-37) Alanine Aminotransferase (ALT/SGPT) 86 U/L (16-63) Alkaline Phosphatase 67 U/L (46-116) Total Protein 6.2 g/dL (6.4-8.2) Albumin 2.7 g/dL (3.4-5.0) Albumin/Globulin Ratio 0.8 (1.0-1.7) Impression . IMPRESSION: 1. Acute hypoxemic respiratory failure due to ARDS/acute lung injury from COVID-19 viral pneumonia. 2. COVID-19 viral pneumonia. 3. Possible bacterial pneumonia. 4. Acute exacerbation of chronic obstructive pulmonary disease. 5. Fever secondary to above. 6. Tobacco dependence. 7. Underlying chronic obstructive pulmonary disease, unknown forced expiratory volume 1. Plan . Updated 06/19/21 Tolerating Vapotherm well. On 100% FiO2 and 40 L flow. Continue remdesivir. Continue steroids started on 06/15/21 Continue ABX on azithro/rocephin BC NGTD DVT/GI PPX:lovenox D/W RN d/w Dr Pyle code status discussed. He wants to think about DNR Continue present treatment Updated 06/18/21 Tolerating Vapotherm well. On 100% FiO2 and 40 L flow. Continue remdesivir. Continue steroids started on 06/15/21 Continue ABX on azithro/rocephin BC NGTD DVT/GI PPX:lovenox D/W RN d/w Dr Pyle code status discussed. He wants to think about DNR Updated 06/17/21 transfer to 6 floor, on vapotherm, keep sats above 92%, Continue remdesivir. Continue steroids started on 06/15/21 Continue ABX on azithro/rocephin BC NGTD DVT/GI PPX:lovenox D/W RN d/w Dr Pyle code status discussed. He wants to think about DNR Updated 06/16/21 Continue supplemental oxygen to keep sats above 92%, on 3 liters NC Continue remdesivir. Continue steroids started on 06/15/21 Continue ABX on azithro/rocephin BC NGTD DVT/GI PPX:lovenox D/W RN 06/15/21PLAN: 1. As discussed above with Dr. Pyle, we will continue support with steroids and antibiotics. 2. Initiate remdesivir. 3. Blood cultures. 4. DVT prophylaxis. 5. Nebulized treatments. RICO WISE MD Jun 19, 2021 09:50
--- NOTE | 2021-06-19 10:04 | PN ---
DATE: 06/19/2021 SUBJECTIVE: The patient is resting, slightly propped up in bed, in no apparent distress. He continued to be on Vapotherm, maintaining his oxygen saturation at 99-100% on 40 liters of oxygen and FiO2 of 40%. His skin rash has completely resolved and APPARENTLY HE IS ALLERGIC TO ROCEPHIN, ZITHROMAX AND LEVAQUIN. PHYSICAL EXAMINATION: GENERAL: When I saw him today, he looked well and was clearly in no apparent respiratory distress. No pallor, jaundice, cyanosis or thyromegaly. No jugular venous distention. No limb edema. VITAL SIGNS: His heart rate was 70, blood pressure was 136/80, temperature was 96.5, respiratory rate was 18 and oxygen saturation was 99% on FiO2 of 100% with 40 liters of oxygen by Vapotherm. HEAD, EYES, EARS, NOSE AND THROAT: Showed normocephalic, atraumatic. NECK: Supple. HEART: Showed normal first and second heart sounds with no gallop, rub or murmur. CHEST: Shows central trachea, equally reduced chest expansion, reduced air entry. I could not really appreciate any crepitation or rhonchi. ABDOMEN: Scaphoid, soft, nontender. NEUROLOGIC: He was grossly intact. His intake was 400, output was 1450. LABORATORY DATA: As of yesterday, his white cell count was 4500, hemoglobin 14, hematocrit 42, MCV 92 and platelet count of 161,000. His chemistry showed a serum sodium 133, potassium 4.5, chloride 100, bicarbonate 23, anion gap of 10, BUN 26, creatinine 0.8. Estimated GFR was 96 mL per minute. His glucose was 123, calcium was 8.8. Total bilirubin, alkaline phosphatase normal. AST, ALT slightly elevated. Total protein 6.2, albumin 2.7. His D-dimer was only 0.47. ASSESSMENT: 1. Acute hypoxic respiratory failure. 2. COVID-19 pneumonia. 3. Chronic obstructive pulmonary disease exacerbation. 4. ALLERGIC REACTION, LIKELY TO ROCEPHIN, ZITHROMAX AND LEVAQUIN. PLAN: My plan is to continue with dexamethasone. Continue with remdesivir. Continue with DVT prophylaxis. Continue with Mucinex and Singulair. Continue with oxygen supplementation as he is now on Vapotherm 40 liters and FiO2 of 100%, although his oxygen saturation is much better than yesterday. Continue obviously with Benadryl for allergic reaction. I will consult Infectious Disease to see whether he really needs any antibiotic or just continue with the dexamethasone and remdesivir. BLANCHE DR: Star TID: [id number]
[2021-06-19 11:00] VITALS: BP 132/82
--- NOTE | 2021-06-19 11:31 | CONS ---
DATE OF CONSULTATION: 06/19/2021 REQUESTING PHYSICIAN: Caroline Pyle MD REASON FOR CONSULTATION: Multiple antibiotic allergies. HISTORY OF PRESENT ILLNESS: This is a 70-year-old gentleman who was a transfer from [place]. The patient presented there with shortness of breath. The patient was diagnosed with COVID-19 positive. The patient is requiring significant oxygen support with the Vapotherm and he did develop rash, thought to be either from Levaquin or remdesivir. The patient denies any nausea, vomiting, diarrhea. Denies any fever. Denies any chest pain. Breathing is okay, he says. The patient's Levaquin has been discontinued. The patient has continued to get remdesivir. PAST MEDICAL HISTORY: Positive for COPD. SOCIAL HISTORY: Positive for smoking. No alcohol use or drug use. The patient did not take vaccine. ALLERGIES: KNOWN ALLERGIC TO ASPIRIN. CURRENT MEDICATIONS: Reviewed. REVIEW OF SYSTEMS: As in HPI. All other systems reviewed are negative. PHYSICAL EXAMINATION: GENERAL: Alert, oriented gentleman, not in distress. VITAL SIGNS: Stable, afebrile. HEENT: NAD. NECK: Supple. No JVP. No lymphadenopathy. LUNGS: Clear. HEART: S1, S2 regular. ABDOMEN: Soft, nontender. No organomegaly. SKIN: The patient has all over the body occasional erythematous rash. There is no blistering. There are no macules. NEUROLOGIC: The patient is alert, awake, appropriate. No focal neurologic deficit. LABORATORY DATA: White count is low normal 4.5, BUN and creatinine is normal. His liver functions, ALT and AST are 67 and 86. Blood cultures are negative. DIAGNOSTIC DATA: Chest x-ray showed bilateral pulmonary infiltrate. IMPRESSION: 1. COVID-19 positive. 2. Pulmonary infiltrate. 3. Respiratory failure. RECOMMENDATIONS: Do not see the need for any antibiotics. We will continue current supportive care with steroids and remdesivir and we will continue to follow. Thank you very much, Dr. Pyle, for giving me opportunity to participate in this patient's care. RANCHO PARR: Vi TID: [id number]
[2021-06-19] MEDS: REMDESIVIR 100mg in NORMAL SALINE 250ML X 4 DAYS IV SCH (12:44)
--- NOTE | 2021-06-19 14:25 | NUR ---
SS following up with discharge planning. SS reviewed pt chart and discussed with pt RN. Pt is currently requiring Vapotherm at 40 liters. COVID19 positive. Pt on IV Decadron. ID consulted. SS will continue to follow for discharge planning.
[2021-06-19 15:00] VITALS: BP 117/74
[2021-06-19 19:45] VITALS: BP 135/79
[2021-06-19] MEDS: MONTELUKAST SODIUM 10 MG TABLET. PO SCH (21:13)
[2021-06-19] MEDS: traZODone 50 MG TABLET. PO SCH (21:14)
[2021-06-19 23:00] VITALS: BP 117/74
[2021-06-20] MEDS: STERILE WATER for RESP 1,000 ML BAG. INH PRN ×3 (01:38→22:42)
[2021-06-20 03:10] VITALS: BP 124/76
[2021-06-20 05:17] LABS: HEMOGLOBIN 13.6 g/dL (13.0-17.5); RED BLOOD COUNT 4.35 x10^6/uL (4.30-5.70); RED CELL DISTRIBUTION WIDTH 14.1 % (11.5-14.5); WHITE BLOOD COUNT 5.8 x10^3/uL (4.0-11.0)
[2021-06-20 05:37] LABS: ALBUMIN 2.5 g/dL (3.4-5.0); ALBUMIN/GLOBULIN RATIO 0.8 (1.0-1.7); CALCIUM 8.3 mg/dL (8.5-10.1); CREATININE 0.9 mg/dL (0.7-1.3); GFR 83.9; POTASSIUM 4.4 mmol/L (3.5-5.1); TOTAL BILIRUBIN 0.4 mg/dL (0.2-1.0); TOTAL PROTEIN 5.7 g/dL (6.4-8.2)
[2021-06-20 07:00] VITALS: BP 131/76
[2021-06-20] MEDS: NICOTINE 21MG PATCH. TD SCH (09:51)
[2021-06-20] MEDS: IPRATROPIUM/ALBUTEROL 20/100mcg/INH INHALER. INH SCH ×4 (09:51→22:05)
[2021-06-20] MEDS: ENOXAPARIN 40 MG/0.4 ML SYRINGE. SQ SCH (09:52)
[2021-06-20] MEDS: LACTOBACILLUS RHAMNOSUS GG 1 CAPSULE. PO SCH ×2 (09:52→22:05)
[2021-06-20] MEDS: DEXAMETHASONE SOD PHOS 4 MG/ML VIAL IVP SCH (09:52)
--- NOTE | 2021-06-20 09:55 | PDOC ---
Infectious Disease Note Subjective Subjective pt is feeling good ROS ROS no n/v/d/ Vital Sign Vital Signs Vital Signs Date Time Temp Pulse Resp B/P (MAP) Pulse Ox O2 Delivery O2 Flow Rate FiO2 06/20/21 08:50 96 VAPOTHERM 40.0 06/20/21 07:00 96.9 77 16 131/76 (94) 96.9 Physical Exam PHYSICAL EXAM GENERAL: Alert, oriented gentleman, not in distress. VITAL SIGNS: Stable, afebrile. HEENT: NAD. NECK: Supple. No JVP. No lymphadenopathy. LUNGS: Clear. HEART: S1, S2 regular. ABDOMEN: Soft, nontender. No organomegaly. SKIN: The patient has all over the body occasional erythematous rash. There is no blistering. There are no macules. NEUROLOGIC: The patient is alert, awake, appropriate. No focal neurologic deficit. Labs Lab Laboratory Tests Test 06/20/21 04:00 White Blood Count 5.8 x10^3/uL (4.0-11.0) Red Blood Count 4.35 x10^6/uL (4.30-5.70) Hemoglobin 13.6 g/dL (13.0-17.5) Hematocrit 40.0 % (39.0-53.0) Mean Corpuscular Volume 92 fL (79-100) Mean Corpuscular Hemoglobin 31 pg (25-35) Mean Corpuscular Hemoglobin Concent 34 g/dL (31-37) Red Cell Distribution Width 14.1 % (11.5-14.5) Platelet Count 196 x10^3/uL (140-400) Sodium Level 138 mmol/L (136-145) Potassium Level 4.4 mmol/L (3.5-5.1) Chloride Level 103 mmol/L (98-107) Carbon Dioxide Level 22 mmol/L (21-32) Anion Gap 13 (6-14) Blood Urea Nitrogen 31 mg/dL (8-26) Creatinine 0.9 mg/dL (0.7-1.3) Estimated GFR (Cockcroft-Gault) 83.9 BUN/Creatinine Ratio 34 (6-20) Glucose Level 125 mg/dL (70-99) Calcium Level 8.3 mg/dL (8.5-10.1) Total Bilirubin 0.4 mg/dL (0.2-1.0) Aspartate Amino Transf (AST/SGOT) 34 U/L (15-37) Alanine Aminotransferase (ALT/SGPT) 96 U/L (16-63) Alkaline Phosphatase 59 U/L (46-116) Total Protein 5.7 g/dL (6.4-8.2) Albumin 2.5 g/dL (3.4-5.0) Albumin/Globulin Ratio 0.8 (1.0-1.7) Micro Microbiology 06/15/21 Blood Culture - Preliminary, Resulted NO GROWTH AFTER 4 DAYS Objective Assessment IMPRESSION: 1. COVID-19 positive. 2. Pulmonary infiltrate. 3. Respiratory failure. Plan Plan of Care cont steroids, remdesivir supportive care RACHEL GRACE MD Jun 20, 2021 09:55
--- NOTE | 2021-06-20 10:07 | PDOC ---
PULMONARY PROGRESS NOTES DATE: 06/20/21 TIME: 10:05 Subjective Patient appears more comfortable. Currently down to 95% FiO2 via Vapotherm and at 40 L flow. Denies any increased shortness of breath Vitals Vital Signs Date Time Temp Pulse Resp B/P (MAP) Pulse Ox O2 Delivery O2 Flow Rate FiO2 06/20/21 08:50 96 VAPOTHERM 40.0 06/20/21 07:00 96.9 77 16 131/76 (94) 96.9 Comments pt seen during id pandemic visual exam performed rrr on no distress no obvious rash or edema Labs Laboratory Tests Test 06/20/21 04:00 White Blood Count 5.8 x10^3/uL (4.0-11.0) Red Blood Count 4.35 x10^6/uL (4.30-5.70) Hemoglobin 13.6 g/dL (13.0-17.5) Hematocrit 40.0 % (39.0-53.0) Mean Corpuscular Volume 92 fL (79-100) Mean Corpuscular Hemoglobin 31 pg (25-35) Mean Corpuscular Hemoglobin Concent 34 g/dL (31-37) Red Cell Distribution Width 14.1 % (11.5-14.5) Platelet Count 196 x10^3/uL (140-400) Sodium Level 138 mmol/L (136-145) Potassium Level 4.4 mmol/L (3.5-5.1) Chloride Level 103 mmol/L (98-107) Carbon Dioxide Level 22 mmol/L (21-32) Anion Gap 13 (6-14) Blood Urea Nitrogen 31 mg/dL (8-26) Creatinine 0.9 mg/dL (0.7-1.3) Estimated GFR (Cockcroft-Gault) 83.9 BUN/Creatinine Ratio 34 (6-20) Glucose Level 125 mg/dL (70-99) Calcium Level 8.3 mg/dL (8.5-10.1) Total Bilirubin 0.4 mg/dL (0.2-1.0) Aspartate Amino Transf (AST/SGOT) 34 U/L (15-37) Alanine Aminotransferase (ALT/SGPT) 96 U/L (16-63) Alkaline Phosphatase 59 U/L (46-116) Total Protein 5.7 g/dL (6.4-8.2) Albumin 2.5 g/dL (3.4-5.0) Albumin/Globulin Ratio 0.8 (1.0-1.7) Laboratory Tests Test 06/20/21 04:00 White Blood Count 5.8 x10^3/uL (4.0-11.0) Red Blood Count 4.35 x10^6/uL (4.30-5.70) Hemoglobin 13.6 g/dL (13.0-17.5) Hematocrit 40.0 % (39.0-53.0) Mean Corpuscular Volume 92 fL (79-100) Mean Corpuscular Hemoglobin 31 pg (25-35) Mean Corpuscular Hemoglobin Concent 34 g/dL (31-37) Red Cell Distribution Width 14.1 % (11.5-14.5) Platelet Count 196 x10^3/uL (140-400) Sodium Level 138 mmol/L (136-145) Potassium Level 4.4 mmol/L (3.5-5.1) Chloride Level 103 mmol/L (98-107) Carbon Dioxide Level 22 mmol/L (21-32) Anion Gap 13 (6-14) Blood Urea Nitrogen 31 mg/dL (8-26) Creatinine 0.9 mg/dL (0.7-1.3) Estimated GFR (Cockcroft-Gault) 83.9 BUN/Creatinine Ratio 34 (6-20) Glucose Level 125 mg/dL (70-99) Calcium Level 8.3 mg/dL (8.5-10.1) Total Bilirubin 0.4 mg/dL (0.2-1.0) Aspartate Amino Transf (AST/SGOT) 34 U/L (15-37) Alanine Aminotransferase (ALT/SGPT) 96 U/L (16-63) Alkaline Phosphatase 59 U/L (46-116) Total Protein 5.7 g/dL (6.4-8.2) Albumin 2.5 g/dL (3.4-5.0) Albumin/Globulin Ratio 0.8 (1.0-1.7) Impression . IMPRESSION: 1. Acute hypoxemic respiratory failure due to ARDS/acute lung injury from COVID-19 viral pneumonia. 2. COVID-19 viral pneumonia. 3. Possible bacterial pneumonia. 4. Acute exacerbation of chronic obstructive pulmonary disease. 5. Fever secondary to above. 6. Tobacco dependence. 7. Underlying chronic obstructive pulmonary disease, unknown forced expiratory volume 1. Plan . Updated 06/20/21 Tolerating Vapotherm well. On 95% FiO2 and 40 L flow. Continue remdesivir. Continue steroids started on 06/15/21 Continue ABX on azithro/rocephin BC NGTD DVT/GI PPX:lovenox D/W RN Continue present treatment Updated 06/19/21 Tolerating Vapotherm well. On 100% FiO2 and 40 L flow. Continue remdesivir. Continue steroids started on 06/15/21 Continue ABX on azithro/rocephin BC NGTD DVT/GI PPX:lovenox D/W RN d/w Dr Pyle code status discussed. He wants to think about DNR Continue present treatment Updated 06/18/21 Tolerating Vapotherm well. On 100% FiO2 and 40 L flow. Continue remdesivir. Continue steroids started on 06/15/21 Continue ABX on azithro/rocephin BC NGTD DVT/GI PPX:lovenox D/W RN d/w Dr Pyle code status discussed. He wants to think about DNR Updated 06/17/21 transfer to 6 floor, on vapotherm, keep sats above 92%, Continue remdesivir. Continue steroids started on 06/15/21 Continue ABX on azithro/rocephin BC NGTD DVT/GI PPX:lovenox D/W RN d/w Dr Pyle code status discussed. He wants to think about DNR Updated 06/16/21 Continue supplemental oxygen to keep sats above 92%, on 3 liters NC Continue remdesivir. Continue steroids started on 06/15/21 Continue ABX on azithro/rocephin BC NGTD DVT/GI PPX:lovenox D/W RN 06/15/21PLAN: 1. As discussed above with Dr. Pyle, we will continue support with steroids and antibiotics. 2. Initiate remdesivir. 3. Blood cultures. 4. DVT prophylaxis. 5. Nebulized treatments. RICO WISE MD Jun 20, 2021 10:07
[2021-06-20 11:00] VITALS: BP 118/70
[2021-06-20] MEDS: diphenhydrAMINE HCL 25 MG CAPSULE PO PRN (11:44)
--- NOTE | 2021-06-20 14:09 | NUR ---
SS following up with discharge planning. SS reviewed pt chart and discussed with pt RN. Pt is currently requiring Vapotherm at 40 liters. COVID19 positive. Pt on IV Decadron. SS will continue to follow for discharge planning.
[2021-06-20 15:00] VITALS: BP 120/72
--- NOTE | 2021-06-20 16:25 | PN ---
DATE: 06/20/2021 SUBJECTIVE: The patient is resting, slightly propped up in bed, in no apparent respiratory distress. He is awake, alert, continued to have cough with scanty whitish sputum. He denied any chest pain. He continued to have some rash that is much less than before. This is mildly pruritic. He now continues to be on Vapotherm at 40 liters and FiO2 of 95%, maintaining his oxygen saturation at 94%-96%. PHYSICAL EXAMINATION: GENERAL: When I examined him this morning, he looked pale, somewhat cachectic, but no jaundice, cyanosis or thyromegaly. No jugular venous distention. No limb edema. VITAL SIGNS: His heart rate was 77, blood pressure is 131/76, temperature was 96.9, respiratory rate was 16, and oxygen saturation was 96%. HEAD, EYES, EARS, NOSE, AND THROAT: Normocephalic, atraumatic. NECK: Supple. HEART: Normal first and second heart sound, no gallop or murmur. CHEST: Shows central trachea, equally reduced expansion, reduced air entry, vesicular breath sounds with crepitation mostly on the right side posteriorly. I could not appreciate any rhonchi. ABDOMEN: Scaphoid, soft, nontender. NEUROLOGIC: He was grossly intact. His intake over the last 24 hours was 990, output was 350. LABORATORY DATA: As of this morning, his white cell count was 5800, hemoglobin 13.6, hematocrit 40, MCV 92 and platelet count of 196,000. Serum sodium was 138, potassium 4.4, chloride 103, bicarbonate 22, anion gap of 13, BUN 31, creatinine 0.9. Estimated GFR was 84 mL per minute, glucose 125, calcium was 8.3. Total bilirubin, AST, ALT, alkaline phosphatase are normal. Total protein 5.7, albumin 2.5. ASSESSMENT: 1. Acute hypoxic respiratory failure. 2. COVID-19 pneumonia. 3. Chronic obstructive pulmonary disease exacerbation. 4. Allergic reaction to Rocephin, Zithromax and Levaquin. PLAN: Continue with remdesivir. Continue with dexamethasone. Continue with DVT prophylaxis. Continue with Mucinex and Singulair. Continue with oxygen supplementation, titrate as needed. PORFIRIO/ARIES/ELVIS DR: Star TID: [id number]
[2021-06-20 19:52] VITALS: BP 119/68
[2021-06-20] MEDS: traZODone 50 MG TABLET. PO SCH (22:06)
[2021-06-20] MEDS: MONTELUKAST SODIUM 10 MG TABLET. PO SCH (22:18)
[2021-06-20 22:36] VITALS: BP 146/80
[2021-06-20] MEDS: guaiFENesin DM 200MG/20MG 10 ML SYRUP PO PRN (22:42)
[2021-06-21] VITALS (14 sets, daily range): BP systolic 104–160; BP diastolic 65–94
[2021-06-21] MEDS: guaiFENesin DM 200MG/20MG 10 ML SYRUP PO PRN (07:22)
[2021-06-21] MEDS: IPRATROPIUM/ALBUTEROL 20/100mcg/INH INHALER. INH SCH ×2 (09:46→12:00)
[2021-06-21] MEDS: ENOXAPARIN 40 MG/0.4 ML SYRINGE. SQ SCH (09:47)
[2021-06-21] MEDS: LACTOBACILLUS RHAMNOSUS GG 1 CAPSULE. PO SCH ×2 (09:47→21:31)
[2021-06-21] MEDS: NICOTINE 21MG PATCH. TD SCH (09:48)
[2021-06-21] MEDS: DEXAMETHASONE SOD PHOS 4 MG/ML VIAL IVP SCH (09:50)
--- NOTE | 2021-06-21 09:56 | PDOC ---
PULMONARY PROGRESS NOTES DATE: 06/21/21 TIME: 09:54 Subjective Patient appears more comfortable. Slightly anxious. Has reportedly coughing last night. Currently down to 95% FiO2 via Vapotherm and at 40 L flow. Additional nonrebreather mask was added. Denies any increased shortness of breath Vitals Vital Signs Date Time Temp Pulse Resp B/P (MAP) Pulse Ox O2 Delivery O2 Flow Rate FiO2 06/21/21 07:28 95 VAPOTHERM 40.0 06/21/21 07:00 98.3 65 125/78 (94) 98.3 06/20/21 22:36 18 Comments pt seen during covid-19 pandemic visual exam performed rrr on no distress no obvious rash or edema Labs Laboratory Tests Test 06/20/21 04:00 White Blood Count 5.8 x10^3/uL (4.0-11.0) Red Blood Count 4.35 x10^6/uL (4.30-5.70) Hemoglobin 13.6 g/dL (13.0-17.5) Hematocrit 40.0 % (39.0-53.0) Mean Corpuscular Volume 92 fL (79-100) Mean Corpuscular Hemoglobin 31 pg (25-35) Mean Corpuscular Hemoglobin Concent 34 g/dL (31-37) Red Cell Distribution Width 14.1 % (11.5-14.5) Platelet Count 196 x10^3/uL (140-400) Sodium Level 138 mmol/L (136-145) Potassium Level 4.4 mmol/L (3.5-5.1) Chloride Level 103 mmol/L (98-107) Carbon Dioxide Level 22 mmol/L (21-32) Anion Gap 13 (6-14) Blood Urea Nitrogen 31 mg/dL (8-26) Creatinine 0.9 mg/dL (0.7-1.3) Estimated GFR (Cockcroft-Gault) 83.9 BUN/Creatinine Ratio 34 (6-20) Glucose Level 125 mg/dL (70-99) Calcium Level 8.3 mg/dL (8.5-10.1) Total Bilirubin 0.4 mg/dL (0.2-1.0) Aspartate Amino Transf (AST/SGOT) 34 U/L (15-37) Alanine Aminotransferase (ALT/SGPT) 96 U/L (16-63) Alkaline Phosphatase 59 U/L (46-116) Total Protein 5.7 g/dL (6.4-8.2) Albumin 2.5 g/dL (3.4-5.0) Albumin/Globulin Ratio 0.8 (1.0-1.7) Impression . IMPRESSION: 1. Acute hypoxemic respiratory failure due to ARDS/acute lung injury from COVID-19 viral pneumonia. 2. COVID-19 viral pneumonia. 3. Possible bacterial pneumonia. 4. Acute exacerbation of chronic obstructive pulmonary disease. 5. Fever secondary to above. 6. Tobacco dependence. 7. Underlying chronic obstructive pulmonary disease, unknown forced expiratory volume 1. Plan . Updated 06/21/21 Continue Vapotherm. On 95% FiO2 and 40 L flow. In addition nonrebreather mask as needed. Continue remdesivir. Continue steroids started on 06/15/21 Continue ABX on azithro/rocephin BC NGTD DVT/GI PPX:lovenox D/W RN Continue present treatment Cough suppressants. As needed meds for anxiety. Addendum; patient's ABG shows a PO2 of 42 on 100% FiO2 via Vapotherm. We will place the patient on BiPAP at 100% FiO2 and transfer the patient to the ICU once bed is available Updated 06/20/21 Tolerating Vapotherm well. On 95% FiO2 and 40 L flow. Continue remdesivir. Continue steroids started on 06/15/21 Continue ABX on azithro/rocephin BC NGTD DVT/GI PPX:lovenox D/W RN Continue present treatment Updated 06/19/21 Tolerating Vapotherm well. On 100% FiO2 and 40 L flow. Continue remdesivir. Continue steroids started on 06/15/21 Continue ABX on azithro/rocephin BC NGTD DVT/GI PPX:lovenox D/W RN d/w Dr Pyle code status discussed. He wants to think about DNR Continue present treatment Updated 06/18/21 Tolerating Vapotherm well. On 100% FiO2 and 40 L flow. Continue remdesivir. Continue steroids started on 06/15/21 Continue ABX on azithro/rocephin BC NGTD DVT/GI PPX:lovenox D/W RN d/w Dr Pyle code status discussed. He wants to think about DNR Updated 06/17/21 transfer to 6 floor, on vapotherm, keep sats above 92%, Continue remdesivir. Continue steroids started on 06/15/21 Continue ABX on azithro/rocephin BC NGTD DVT/GI PPX:lovenox D/W RN d/w Dr Pyle code status discussed. He wants to think about DNR Updated 06/16/21 Continue supplemental oxygen to keep sats above 92%, on 3 liters NC Continue remdesivir. Continue steroids started on 06/15/21 Continue ABX on azithro/rocephin BC NGTD DVT/GI PPX:lovenox D/W RN 06/15/21PLAN: 1. As discussed above with Dr. Pyle, we will continue support with steroids and antibiotics. 2. Initiate remdesivir. 3. Blood cultures. 4. DVT prophylaxis. 5. Nebulized treatments. RICO WISE MD Jun 21, 2021 09:56
[2021-06-21 10:16] LABS: BASE EXCESS ABG -1 mmol/L (-3-3); HCO3 ABG 21 mmol/L (21-28); PCO2 ABG 29 mmHg (35-46); SAT O2 ABG 78 % (92-99)
[2021-06-21 10:18] LABS: FIO2 ABG 100/VAPOTHERM; PO2 ABG < 42 mmHg (65-108)
--- NOTE | 2021-06-21 10:53 | RAD ---
Single view chest dated 06/21/2021 10:49 AM: COMPARISON: 06/17/2021 Clinical Indication: Shortness of breath. Findings: Single upright portable exam of the chest was performed. Heart and mediastinal contours are stable. P atchy bibasilar airspace disease with prominent interstitial markings, mildly increased. No pleural e ffusion. No pneumothorax. Lungs are somewhat hyperinflated. IMPRESSION: 1. Mild interval increase in bibasilar airspace disease. Electronically signed by: Paul Morales MD (06/21/2021 10:50 AM) [id number]
--- NOTE | 2021-06-21 12:00 | NUR ---
Report given to [facility]. Transferred patient to 110 accompanied by RT. Patient on bipap
--- NOTE | 2021-06-21 12:51 | PN ---
DATE: 06/21/2021 SUBJECTIVE: The patient is resting propped up in bed, complaining of being short of breath. He has recurrent bouts of cough that are dry and hacking. Denied any chest pain. He is on Vapotherm on 40 liters of oxygen with an FiO2 of 90%, together with 100% nonrebreather mask, maintaining his oxygen saturation around 91-92%. PHYSICAL EXAMINATION: GENERAL: When I examined him, he was slightly tachypneic, but there is no pallor, jaundice, cyanosis or thyromegaly. No jugular venous distention. No lower limb edema. VITAL SIGNS: His heart rate was 124, blood pressure was 125/78, temperature was 98.3, respiratory rate was 24 and oxygen saturation was 92% on Vapotherm on 40 liters of oxygen and FiO2 of 90%. He is also on 100% nonrebreather mask. HEAD, EYES, EARS, NOSE, AND THROAT: Normocephalic, atraumatic. NECK: Supple. HEART: Showed normal first heart sound, no gallop or murmur. CHEST: Clear to auscultation, no crepitation or rhonchi. ABDOMEN: Scaphoid, soft, nontender. NEUROLOGIC: He was grossly intact. SKIN: Showed that his allergic reaction has completely resolved. His intake over the last 24 hours was 890, output was incompletely recorded. LABORATORY DATA: As of yesterday, his serum sodium was 138, potassium 4.4, chloride 103, bicarbonate 22, anion gap of 13, BUN 31, creatinine 0.9. Estimated GFR was 94 mL per minute. His glucose was 125, calcium was 8.3. Total bilirubin, AST, ALT, alkaline phosphatase were normal. Total protein was 5.7, albumin was 2.5. His white cell count was 5800, hemoglobin 13.6, hematocrit 40, MCV 92 and platelet count of 196,000. His most recent D-dimer was 0.47. ASSESSMENT: 1. Acute hypoxic respiratory failure. 2. COVID-19 pneumonia. 3. Chronic obstructive pulmonary disease exacerbation. 4. ALLERGIC REACTION TO ROCEPHIN, ZITHROMAX AND LEVAQUIN. PLAN: Continue with dexamethasone. Continue with remdesivir. Continue with DVT prophylaxis. Continue with Mucinex and Singulair. Continue with oxygen supplementation, titrate as needed. I will arrange for him to have stat ABGs and stat chest x-ray and decide on further management accordingly. XAVIER DR: Star TID: [id number]
[2021-06-21] MEDS: traZODone 50 MG TABLET. PO SCH (21:31)
[2021-06-21] MEDS: MONTELUKAST SODIUM 10 MG TABLET. PO SCH (21:31)
[2021-06-22] VITALS (24 sets, daily range): BP systolic 102–145; BP diastolic 60–83
[2021-06-22] MEDS: ENOXAPARIN 40 MG/0.4 ML SYRINGE. SQ SCH (08:23)
[2021-06-22] MEDS: NICOTINE 21MG PATCH. TD SCH (08:23)
[2021-06-22] MEDS: LACTOBACILLUS RHAMNOSUS GG 1 CAPSULE. PO SCH ×2 (08:37→19:48)
[2021-06-22 08:52] LABS: BASE EXCESS ABG -2 mmol/L (-3-3); HCO3 ABG 20 mmol/L (21-28); PCO2 ABG 26 mmHg (35-46); PO2 ABG 53 mmHg (65-108); SAT O2 ABG 89 % (92-99)
--- NOTE | 2021-06-22 09:16 | PDOC ---
Infectious Disease Note Subjective Subjective Patient is more hypoxic now on BiPAP in ICU ROS ROS No nausea vomiting diarrhea chest pain shortness of breath Vital Sign Vital Signs Vital Signs Date Time Temp Pulse Resp B/P (MAP) Pulse Ox O2 Delivery O2 Flow Rate FiO2 06/22/21 09:08 93 BiPAP/CPAP 06/22/21 09:00 57 24 116/69 (85) 06/22/21 08:00 98.0 98.0 06/21/21 10:15 40.0 Physical Exam PHYSICAL EXAM GENERAL: Alert, oriented gentleman, not in distress. VITAL SIGNS: Stable, afebrile. HEENT: NAD. NECK: Supple. No JVP. No lymphadenopathy. LUNGS: Clear. HEART: S1, S2 regular. ABDOMEN: Soft, nontender. No organomegaly. SKIN: The patient has all over the body occasional erythematous rash. There is no blistering. There are no macules. NEUROLOGIC: The patient is alert, awake, appropriate. No focal neurologic deficit. Labs Lab Laboratory Tests Test 06/21/21 10:07 O2 Saturation 78 % (92-99) Arterial Blood pH 7.48 (7.35-7.45) Arterial Blood pCO2 at Patient Temp 29 mmHg (35-46) Arterial Blood pO2 at Patient Temp < 42 mmHg (65-108) Arterial Blood HCO3 21 mmol/L (21-28) Arterial Blood Base Excess -1 mmol/L (-3-3) FiO2 100/vapotherm Micro Microbiology 06/15/21 Blood Culture - Preliminary, Resulted NO GROWTH AFTER 4 DAYS Objective Assessment IMPRESSION: 1. COVID-19 positive. 2. Pulmonary infiltrate. 3. Respiratory failure. Plan Plan of Care cont steroids, remdesivir supportive care RACHEL GRACE MD Jun 22, 2021 09:16
[2021-06-22 09:20] LABS: FIO2 ABG 100/BIPAP
[2021-06-22] MEDS: AA 4.25 %/CALCIUM/LYTES/D5W 1,000 ML IV SCH (10:00)
[2021-06-22] MEDS ORDERED: SODIUM BICARB ADULT 8.4% 50 MEQ/50 ML DISP.SYRIN. IV ONE (10:00)
--- NOTE | 2021-06-22 10:01 | PDOC ---
PULMONARY PROGRESS NOTES DATE: 06/22/21 TIME: 09:58 Subjective Patient transferred to the ICU 06/21/2021 for worsening hypoxia and dyspnea. Currently comfortable on 100% FiO2 via BiPAP. No paradoxical breathing. S lightly anxious. Vitals Vital Signs Date Time Temp Pulse Resp B/P (MAP) Pulse Ox O2 Delivery O2 Flow Rate FiO2 06/22/21 09:08 93 BiPAP/CPAP 06/22/21 09:00 57 24 116/69 (85) 06/22/21 08:00 98.0 98.0 06/21/21 10:15 40.0 Comments pt seen during covid-19 pandemic visual exam performed rrr on nc 02 no distress no obvious rash or edema Labs Laboratory Tests Test 06/21/21 10:07 06/22/21 08:39 O2 Saturation 78 % (92-99) 89 % (92-99) Arterial Blood pH 7.48 (7.35-7.45) 7.50 (7.35-7.45) Arterial Blood pCO2 at Patient Temp 29 mmHg (35-46) 26 mmHg (35-46) Arterial Blood pO2 at Patient Temp < 42 mmHg (65-108) 53 mmHg (65-108) Arterial Blood HCO3 21 mmol/L (21-28) 20 mmol/L (21-28) Arterial Blood Base Excess -1 mmol/L (-3-3) -2 mmol/L (-3-3) FiO2 100/vapotherm 100/bipap Laboratory Tests Test 06/21/21 10:07 06/22/21 08:39 O2 Saturation 78 % (92-99) 89 % (92-99) Arterial Blood pH 7.48 (7.35-7.45) 7.50 (7.35-7.45) Arterial Blood pCO2 at Patient Temp 29 mmHg (35-46) 26 mmHg (35-46) Arterial Blood pO2 at Patient Temp < 42 mmHg (65-108) 53 mmHg (65-108) Arterial Blood HCO3 21 mmol/L (21-28) 20 mmol/L (21-28) Arterial Blood Base Excess -1 mmol/L (-3-3) -2 mmol/L (-3-3) FiO2 100/vapotherm 100/bipap Impression . IMPRESSION: 1. Acute hypoxemic respiratory failure due to ARDS/acute lung injury from COVID-19 viral pneumonia. 2. COVID-19 viral pneumonia. 3. Possible bacterial pneumonia. 4. Acute exacerbation of chronic obstructive pulmonary disease. 5. Fever secondary to above. 6. Tobacco dependence. 7. Underlying chronic obstructive pulmonary disease, unknown forced expiratory volume 1. 8. Anxiety disorder Plan . Updated 06/22/21 Continue BiPAP at 100% FiO2. Patient is comfortable oxygen saturations in the low 90s. ABGs from today shows respiratory alkalosis, likely secondary to metabolic acidosis. We will give 1 amp of bicarb. We will monitor respiratory status closely. At this time I do not think he needs intubation. Continue remdesivir. Continue steroids started on 06/15/21 Continue ABX on azithro/rocephin BC NGTD DVT/GI PPX:lovenox D/W RN Continue present treatment Cough suppressants. As needed meds for anxiety. Critical care time 30 minutes in includes discussion with RN/RT review of the labs and decision making Updated 06/21/21 Continue Vapotherm. On 95% FiO2 and 40 L flow. In addition nonrebreather mask as needed. Continue remdesivir. Continue steroids started on 06/15/21 Continue ABX on azithro/rocephin BC NGTD DVT/GI PPX:lovenox D/W RN Continue present treatment Cough suppressants. As needed meds for anxiety. Addendum; patient's ABG shows a PO2 of 42 on 100% FiO2 via Vapotherm. We will place the patient on BiPAP at 100% FiO2 and transfer the patient to the ICU once bed is available Updated 06/20/21 Tolerating Vapotherm well. On 95% FiO2 and 40 L flow. Continue remdesivir. Continue steroids started on 06/15/21 Continue ABX on azithro/rocephin BC NGTD DVT/GI PPX:lovenox D/W RN Continue present treatment Updated 06/19/21 Tolerating Vapotherm well. On 100% FiO2 and 40 L flow. Continue remdesivir. Continue steroids started on 06/15/21 Continue ABX on azithro/rocephin BC NGTD DVT/GI PPX:lovenox D/W RN d/w Dr Pyle code status discussed. He wants to think about DNR Continue present treatment Updated 06/18/21 Tolerating Vapotherm well. On 100% FiO2 and 40 L flow. Continue remdesivir. Continue steroids started on 06/15/21 Continue ABX on azithro/rocephin BC NGTD DVT/GI PPX:lovenox D/W RN d/w Dr Pyle code status discussed. He wants to think about DNR Updated 06/17/21 transfer to 6 floor, on vapotherm, keep sats above 92%, Continue remdesivir. Continue steroids started on 06/15/21 Continue ABX on azithro/rocephin BC NGTD DVT/GI PPX:lovenox D/W RN d/w Dr Pyle code status discussed. He wants to think about DNR Updated 06/16/21 Continue supplemental oxygen to keep sats above 92%, on 3 liters NC Continue remdesivir. Continue steroids started on 06/15/21 Continue ABX on azithro/rocephin BC NGTD DVT/GI PPX:lovenox D/W RN 06/15/21PLAN: 1. As discussed above with Dr. Pyle, we will continue support with steroids and antibiotics. 2. Initiate remdesivir. 3. Blood cultures. 4. DVT prophylaxis. 5. Nebulized treatments. RICO WISE MD Jun 22, 2021 10:01
[2021-06-22] MEDS: DEXAMETHASONE SOD PHOS 4 MG/ML VIAL IVP SCH (10:10)
--- NOTE | 2021-06-22 11:27 | PN ---
DATE: 06/22/2021 SUBJECTIVE: The patient is resting, slightly propped up in bed in no apparent respiratory distress. He is on BiPAP machine, maintaining his oxygen saturation at 92-94% on FiO2 of 100%. He stated he did not sleep well last night, although generally he seemed to be more comfortable. PHYSICAL EXAMINATION: GENERAL: When I examined him this morning, there was no pallor, jaundice, cyanosis or thyromegaly. No jugular venous distention. No lower limb edema. VITAL SIGNS: His heart rate was 72, blood pressure is 131/77, temperature was 98, respiratory rate 20, and oxygen saturation was 93-94% on BiPAP machine with an FiO2 of 100%. HEAD, EYES, EARS, NOSE, AND THROAT: Normocephalic, atraumatic. NECK: Supple. HEART: Showed normal first and second heart sounds. No gallop, rub or murmur. CHEST: Shows central trachea, equal bilateral chest expansion, air entry. I could not really appreciate any crepitation or rhonchi anteriorly. ABDOMEN: Scaphoid, soft, nontender. NEUROLOGIC: He was awake, alert, responding appropriately. All his cranial nerves intact. He moves extremities without difficulty. His intake was 900, output was 75. LABORATORY DATA: His most recent lab work showed a BUN of 31, creatinine 0.9. His white cell count was 5800; hemoglobin 13; hematocrit 40; MCV 92 and platelet count of 196,000. ASSESSMENT: 1. Acute hypoxic respiratory failure with worsening oxygen requirement. He was yesterday on Vapotherm on 40 liters of oxygen with FiO2 of 90% and 15 liters by nonrebreather mask. His blood gases showed a pCO2 of 29 and pO2 of 42 and oxygen saturation was 78% on FiO2 of 100%. The patient was therefore transferred to ICU for which he is now on BiPAP machine, doing slightly better. 2. COVID-19 pneumonia for which, he is on remdesivir and dexamethasone. He has an ALLERGIC REACTION TO ZITHROMAX, ROCEPHIN AND LEVOFLOXACIN. 3. The patient has underlying chronic obstructive pulmonary disease. His chest x-ray shows clearly worsening infiltrate with markedly inflated lungs. 4. The patient has ALLERGIC REACTION TO ZITHROMAX, ROCEPHIN AND LEVAQUIN. PLAN: To continue with dexamethasone. Continue with remdesivir. Continue with DVT prophylaxis. Continue with Mucinex and Singulair. Continue with oxygen supplementation and titrate as needed. I will discontinue Mucinex and start him on Tylenol No. 3 and PPN. Had had poor appetite and has not been eating. PORFIRIO/BRUEC/GOSIA DR: PORFIRIO/desi TID: [id number]
[2021-06-22] MEDS: IPRATROPIUM/ALBUTEROL 20/100mcg/INH INHALER. INH SCH (15:46)
[2021-06-22] MEDS: MORPHINE SULFATE 2 MG/ML INJ. IVP PRN ×2 (16:31→19:49)
[2021-06-22] MEDS: guaiFENesin DM 200MG/20MG 10 ML SYRUP PO PRN (18:18)
[2021-06-22] MEDS ORDERED: ATROPINE 0.5 MG/5 ML DISP.SYRINGE. IV PRN (19:00)
[2021-06-22] MEDS ORDERED: IV NORMAL SALINE 500ML BAG 500 ML IV PRN (19:00)
[2021-06-22] MEDS: traZODone 50 MG TABLET. PO SCH (19:48)
[2021-06-22] MEDS: MONTELUKAST SODIUM 10 MG TABLET. PO SCH (19:48)
[2021-06-23] VITALS (24 sets, daily range): BP systolic 98–140; BP diastolic 61–80
[2021-06-23] MEDS: AA 4.25 %/CALCIUM/LYTES/D5W 1,000 ML IV SCH ×3 (02:11→22:15)
--- NOTE | 2021-06-23 06:59 | PDOC ---
PULMONARY PROGRESS NOTES DATE: 06/23/21 TIME: 06:55 Subjective Patient remains on BiPAP at 100% Bradycardia on the monitor Afebrile overnight Overnight concerns from nursing Vitals Vital Signs Date Time Temp Pulse Resp B/P (MAP) Pulse Ox O2 Delivery O2 Flow Rate FiO2 06/23/21 06:00 42 19 118/66 (83) 98 BiPAP/CPAP 06/23/21 04:00 97.1 97.1 06/22/21 19:49 40.0 Comments pt seen during covid-19 pandemic visual exam performed nina BIPAP 100% no distress no obvious rash or edema Labs Laboratory Tests Test 06/21/21 10:07 06/22/21 08:39 O2 Saturation 78 % (92-99) 89 % (92-99) Arterial Blood pH 7.48 (7.35-7.45) 7.50 (7.35-7.45) Arterial Blood pCO2 at Patient Temp 29 mmHg (35-46) 26 mmHg (35-46) Arterial Blood pO2 at Patient Temp < 42 mmHg (65-108) 53 mmHg (65-108) Arterial Blood HCO3 21 mmol/L (21-28) 20 mmol/L (21-28) Arterial Blood Base Excess -1 mmol/L (-3-3) -2 mmol/L (-3-3) FiO2 100/vapotherm 100/bipap Laboratory Tests Test 06/22/21 08:39 O2 Saturation 89 % (92-99) Arterial Blood pH 7.50 (7.35-7.45) Arterial Blood pCO2 at Patient Temp 26 mmHg (35-46) Arterial Blood pO2 at Patient Temp 53 mmHg (65-108) Arterial Blood HCO3 20 mmol/L (21-28) Arterial Blood Base Excess -2 mmol/L (-3-3) FiO2 100/bipap Impression . IMPRESSION: 1. Acute hypoxemic respiratory failure due to ARDS/acute lung injury from COVID-19 viral pneumonia. 2. COVID-19 viral pneumonia. 3. Possible bacterial pneumonia. 4. Acute exacerbation of chronic obstructive pulmonary disease. 5. Fever secondary to above. 6. Tobacco dependence. 7. Underlying chronic obstructive pulmonary disease, unknown forced expiratory volume 1. 8. Anxiety disorder Plan . Updated 06/23/21 Continue current supplemental oxygen to keep oxygen saturation greater than 92%, currently on 100% BIPAP And unable to tolerate Precedex secondary to bradycardia Chest x-ray/ABG Continue remdesivir for full course Continue steroids started on 06/15/21, will need full 10-day course infectious disease recommendations in regards to antibiotics, completed full course of Rocephin and azithromycin, currently off antibiotics Continue PPN for nutritional support DVT/GI PPX:lovenox D/W RN and RT Critical care time 30 minutes in includes discussion with RN/RT review of the labs and decision making Updated 06/22/21 Continue BiPAP at 100% FiO2. Patient is comfortable oxygen saturations in the low 90s. ABGs from today shows respiratory alkalosis, likely secondary to metabolic acidosis. We will give 1 amp of bicarb. We will monitor respiratory status closely. At this time I do not think he needs intubation. Continue remdesivir. Continue steroids started on 06/15/21 Continue ABX on azithro/rocephin BC NGTD DVT/GI PPX:lovenox D/W RN Continue present treatment Cough suppressants. As needed meds for anxiety. Critical care time 30 minutes in includes discussion with RN/RT review of the labs and decision making Updated 06/21/21 Continue Vapotherm. On 95% FiO2 and 40 L flow. In addition nonrebreather mask as needed. Continue remdesivir. Continue steroids started on 06/15/21 Continue ABX on azithro/rocephin BC NGTD DVT/GI PPX:lovenox D/W RN Continue present treatment Cough suppressants. As needed meds for anxiety. Addendum; patient's ABG shows a PO2 of 42 on 100% FiO2 via Vapotherm. We will place the patient on BiPAP at 100% FiO2 and transfer the patient to the ICU once bed is available RICO WISE MD Jun 23, 2021 06:59
--- NOTE | 2021-06-23 08:09 | PDOC ---
Infectious Disease Note Subjective: Subjective Patient remains on BiPAP Vital Signs: Vital Signs Vital Signs Date Time Temp Pulse Resp B/P (MAP) Pulse Ox O2 Delivery O2 Flow Rate FiO2 06/23/21 06:00 42 19 118/66 (83) 98 BiPAP/CPAP 06/23/21 04:00 97.1 97.1 06/22/21 19:49 40.0 Physical Exam: PHYSICAL EXAM GENERAL: Alert, oriented gentleman, not in distress. VITAL SIGNS: Stable, afebrile. HEENT: NAD. NECK: Supple. No JVP. No lymphadenopathy. LUNGS: Clear. HEART: S1, S2 regular. ABDOMEN: Soft, nontender. No organomegaly. SKIN: The patient has all over the body occasional erythematous rash. There is no blistering. There are no macules. NEUROLOGIC: The patient is alert, awake, appropriate. No focal neurologic deficit. Medications: Inpatient Meds: Medications reviewed. Labs: Lab Laboratory Tests Test 06/22/21 08:39 O2 Saturation 89 % (92-99) Arterial Blood pH 7.50 (7.35-7.45) Arterial Blood pCO2 at Patient Temp 26 mmHg (35-46) Arterial Blood pO2 at Patient Temp 53 mmHg (65-108) Arterial Blood HCO3 20 mmol/L (21-28) Arterial Blood Base Excess -2 mmol/L (-3-3) FiO2 100/bipap Objective: Assessment: 1. COVID-19 infection. 2. Pulmonary infiltrate. 3. Respiratory failure. Plan: Plan of Care on steroids, s/p Remdesivir supportive care D/W DAVID ROWE MD Jun 23, 2021 08:09
[2021-06-23] MEDS: NICOTINE 21MG PATCH. TD SCH (09:00)
[2021-06-23] MEDS: LACTOBACILLUS RHAMNOSUS GG 1 CAPSULE. PO SCH ×2 (09:00→22:20)
[2021-06-23] MEDS: MORPHINE SULFATE 2 MG/ML INJ. IVP PRN (11:13)
--- NOTE | 2021-06-23 11:44 | PDOC ---
Provider Note Date of Service: DATE: 06/23/21 TIME: 11:38 Provider Note Anesthesiology Called to place a Central Line in a Covid+ pt. requiring IV access. Consent obtained. Arrow TLC placed via Right Subclavian approach in usual sterile fashion on first attempt. All ports easily aspirated and flushed. Pt. tolerated well. VSS. CXR pending to confirm placement. See [facility] record. Elbert Anders MD Justifications for Admission Other Justification CHANTEL ANDERS MD Jun 23, 2021 11:44
[2021-06-23 11:54] LABS: HEMATOCRIT 40.5 % (39.0-53.0); HEMOGLOBIN 13.6 g/dL (13.0-17.5); RED BLOOD COUNT 4.43 x10^6/uL (4.30-5.70); RED CELL DISTRIBUTION WIDTH 13.8 % (11.5-14.5)
--- NOTE | 2021-06-23 11:54 | RAD ---
XR CHEST 1V 06/23/2021 11:02 AM INDICATION: Central line placement COMPARISON: 06/21/2021 TECHNIQUE: Portable frontal view of the chest is provided. FINDINGS/ IMPRESSION: Right subclavian central venous catheter is identified with the distal tip projecting over the mid townsend perior vena cava. The cardiomediastinal silhouette is similar in appearance. There is persistent patc hy interstitial airspace disease identified within the right upper and middle lobes as well as the le ft lower lobe. There is marginal improvement in aeration of left lower lobe as compared to prior exam ination from 06/21/2021. Pulmonary venous system as changes are present. There are no significant pleural effusions. There is no pulmonary vascular congestion. No pneumothora x. No suspicious osseous abnormality. Electronically signed by: Sofiya Hernandez MD (06/23/2021 11:51 AM) [id number]
[2021-06-23] MEDS: DEXMEDETOMIDINE 400 MCG in IV NORMAL SALINE 100ML 96 ML IV PRN ×3 (11:56→22:13)
[2021-06-23 12:04] LABS: CALCIUM 8.5 mg/dL (8.5-10.1); CREATININE 0.8 mg/dL (0.7-1.3); GFR 96.1; POTASSIUM 4.4 mmol/L (3.5-5.1)
[2021-06-23] MEDS: DEXAMETHASONE SOD PHOS 4 MG/ML VIAL IVP SCH (13:03)
[2021-06-23] MEDS: ENOXAPARIN 40 MG/0.4 ML SYRINGE. SQ SCH (13:03)
--- NOTE | 2021-06-23 13:41 | PN ---
DATE: 06/23/2021 SUBJECTIVE: The patient is resting, slightly propped up in bed, in no apparent distress. He continues to be on BiPAP machine, maintaining his oxygen saturation about 88-89% on FiO2 of 100% on BiPAP. He denied any chest pain and his cough is much less according to him. He managed to sleep on and off last night. Unfortunately, he lost his IV line and his TPN was discontinued. He continued to have very poor appetite. OBJECTIVE: GENERAL: When I examined him, he looked well and was clearly in no apparent respiratory distress. HEENT: There was no pallor, jaundice, cyanosis or thyromegaly. No jugular venous distention. No lower limb edema. VITAL SIGNS: His heart rate was 42, blood pressure 118/66, temperature was 97.1, respiratory rate was 19 and oxygen saturation was 98% on FiO2 of 100%. HEAD, EYES, EARS, NOSE, AND THROAT: Normocephalic, atraumatic. NECK: Supple. HEART: Showed normal first and second heart sounds, no gallop or murmur. CHEST: Shows central trachea, equal bilateral expansion, air entry, vesicular breath sounds. No crepitation or rhonchi. ABDOMEN: Slightly distended, soft, nontender. NEUROLOGIC: He was grossly intact. His intake over the last 24 hours was 200, output was 1300. LABORATORY DATA: No lab work is done this morning. ASSESSMENT: 1. Acute hypoxic respiratory failure with worsening oxygen requirement. He was initially on Vapotherm, 40 liters of oxygen with an FiO2 of 90% on 15 liters on rebreather mask. His blood gas showed a pCO2 of 29, PaO2 of 42 and oxygen saturation was only 78%, on FiO2 of 100%, the patient was therefore transferred to ICU and was started on BiPAP machine. 2. COVID-19 pneumonia for which he is on remdesivir and dexamethasone. HE HAS AN ALLERGIC REACTION TO ZITHROMAX, ROCEPHIN AND LEVOFLOXACIN. 3. The patient has underlying chronic obstructive pulmonary disease. His chest x-ray showed that he has worsening infiltrate with markedly infected lungs. 4. THE PATIENT HAS ALLERGIC REACTION TO ZITHROMAX, ROCEPHIN, ____. PLAN: To continue with dexamethasone. Continue with remdesivir. Continue with DVT prophylaxis. Continue with Mucinex and Singulair. Continue with oxygen supplementation and titrate as needed. He is on Robitussin-DM every 4 hours and it seems that is helping his dry hacking cough. PORFIRIO/ALICIA/ELVIS DR: PORFIRIO/desi TID: [id number]
--- NOTE | 2021-06-23 15:57 | NUR ---
SS following up with discharge planning. SS reviewed pt chart and discussed with pt RN. Pt is currently requiring BIPAP at 100%. COVID19 positive. Pt on Precedex and IV Decadron. Pt on Clinimix. Central line being placed today. SS will continue to follow for discharge planning.
[2021-06-23] MEDS: guaiFENesin DM 200MG/20MG 10 ML SYRUP PO PRN (16:07)
[2021-06-23] MEDS: IPRATROPIUM/ALBUTEROL 20/100mcg/INH INHALER. INH SCH ×2 (22:13→22:16)
[2021-06-23] MEDS: MONTELUKAST SODIUM 10 MG TABLET. PO SCH (22:14)
[2021-06-23] MEDS: traZODone 50 MG TABLET. PO SCH (22:14)
[2021-06-24] VITALS (24 sets, daily range): BP systolic 119–162; BP diastolic 68–79
--- NOTE | 2021-06-24 05:27 | PDOC ---
PULMONARY PROGRESS NOTES DATE: 06/24/21 TIME: 05:26 Subjective Patient remains on BiPAP at 100% Overnight concerns from nursing Vitals Vital Signs Date Time Temp Pulse Resp B/P (MAP) Pulse Ox O2 Delivery O2 Flow Rate FiO2 06/24/21 05:00 43 20 119/68 (85) 95 BiPAP/CPAP 06/24/21 04:00 97.3 97.3 06/23/21 11:43 40.0 Comments pt seen during pandemic visual exam performed nina BIPAP 100% no distress no obvious rash or edema Labs Laboratory Tests Test 06/22/21 08:39 06/23/21 11:43 O2 Saturation 89 % (92-99) Arterial Blood pH 7.50 (7.35-7.45) Arterial Blood pCO2 at Patient Temp 26 mmHg (35-46) Arterial Blood pO2 at Patient Temp 53 mmHg (65-108) Arterial Blood HCO3 20 mmol/L (21-28) Arterial Blood Base Excess -2 mmol/L (-3-3) FiO2 100/bipap White Blood Count 14.0 x10^3/uL (4.0-11.0) Red Blood Count 4.43 x10^6/uL (4.30-5.70) Hemoglobin 13.6 g/dL (13.0-17.5) Hematocrit 40.5 % (39.0-53.0) Mean Corpuscular Volume 91 fL (79-100) Mean Corpuscular Hemoglobin 31 pg (25-35) Mean Corpuscular Hemoglobin Concent 34 g/dL (31-37) Red Cell Distribution Width 13.8 % (11.5-14.5) Platelet Count 162 x10^3/uL (140-400) Sodium Level 132 mmol/L (136-145) Potassium Level 4.4 mmol/L (3.5-5.1) Chloride Level 99 mmol/L (98-107) Carbon Dioxide Level 28 mmol/L (21-32) Anion Gap 5 (6-14) Blood Urea Nitrogen 30 mg/dL (8-26) Creatinine 0.8 mg/dL (0.7-1.3) Estimated GFR (Cockcroft-Gault) 96.1 Glucose Level 93 mg/dL (70-99) Calcium Level 8.5 mg/dL (8.5-10.1) Laboratory Tests Test 06/23/21 11:43 White Blood Count 14.0 x10^3/uL (4.0-11.0) Red Blood Count 4.43 x10^6/uL (4.30-5.70) Hemoglobin 13.6 g/dL (13.0-17.5) Hematocrit 40.5 % (39.0-53.0) Mean Corpuscular Volume 91 fL (79-100) Mean Corpuscular Hemoglobin 31 pg (25-35) Mean Corpuscular Hemoglobin Concent 34 g/dL (31-37) Red Cell Distribution Width 13.8 % (11.5-14.5) Platelet Count 162 x10^3/uL (140-400) Sodium Level 132 mmol/L (136-145) Potassium Level 4.4 mmol/L (3.5-5.1) Chloride Level 99 mmol/L (98-107) Carbon Dioxide Level 28 mmol/L (21-32) Anion Gap 5 (6-14) Blood Urea Nitrogen 30 mg/dL (8-26) Creatinine 0.8 mg/dL (0.7-1.3) Estimated GFR (Cockcroft-Gault) 96.1 Glucose Level 93 mg/dL (70-99) Calcium Level 8.5 mg/dL (8.5-10.1) Impression . IMPRESSION: 1. Acute hypoxemic respiratory failure due to ARDS/acute lung injury from COVID-19 viral pneumonia. 2. COVID-19 viral pneumonia. 3. Possible bacterial pneumonia. 4. Acute exacerbation of chronic obstructive pulmonary disease. 5. Fever secondary to above--resolved 6. Tobacco dependence. 7. Underlying chronic obstructive pulmonary disease, unknown forced expiratory volume 1. 8. Anxiety disorder Plan . Updated 06/24/21 Continue current supplemental oxygen to keep oxygen saturation greater than 92%, currently on 100% BIPAP Chest x-ray/ABG S/P remdesivir Continue steroids started on 06/15/21, will need full 10-day course infectious disease recommendations in regards to antibiotics-- currently off antibiotics Continue PPN for nutritional support DVT/GI PPX:lovenox D/W RN and RT Critical care time 30 minutes in includes discussion with RN/RT review of the labs and decision making Updated 06/23/21 Continue current supplemental oxygen to keep oxygen saturation greater than 92%, currently on 100% BIPAP And unable to tolerate Precedex secondary to bradycardia Chest x-ray/ABG Continue remdesivir for full course Continue steroids started on 06/15/21, will need full 10-day course infectious disease recommendations in regards to antibiotics, completed full course of Rocephin and azithromycin, currently off antibiotics Continue PPN for nutritional support DVT/GI PPX:lovenox D/W RN and RT Critical care time 30 minutes in includes discussion with RN/RT review of the labs and decision making Updated 06/22/21 Continue BiPAP at 100% FiO2. Patient is comfortable oxygen saturations in the low 90s. ABGs from today shows respiratory alkalosis, likely secondary to metabolic acidosis. We will give 1 amp of bicarb. We will monitor respiratory status closely. At this time I do not think he needs intubation. Continue remdesivir. Continue steroids started on 06/15/21 Continue ABX on azithro/rocephin BC NGTD DVT/GI PPX:lovenox D/W RN Continue present treatment Cough suppressants. As needed meds for anxiety. Critical care time 30 minutes in includes discussion with RN/RT review of the labs and decision making RICO WISE MD Jun 24, 2021 05:27
[2021-06-24 06:18] LABS: HEMATOCRIT 40.1 % (39.0-53.0); HEMOGLOBIN 13.4 g/dL (13.0-17.5); RED BLOOD COUNT 4.37 x10^6/uL (4.30-5.70); RED CELL DISTRIBUTION WIDTH 13.9 % (11.5-14.5)
[2021-06-24 06:24] LABS: ALBUMIN/GLOBULIN RATIO 0.5 (1.0-1.7); CALCIUM 8.6 mg/dL (8.5-10.1); CREATININE 0.7 mg/dL (0.7-1.3); GFR 112.1; POTASSIUM 5.1 mmol/L (3.5-5.1); TOTAL BILIRUBIN 0.7 mg/dL (0.2-1.0); TOTAL PROTEIN 5.9 g/dL (6.4-8.2)
--- NOTE | 2021-06-24 07:35 | PDOC ---
Infectious Disease Note Subjective: Subjective Patient remains on BiPAP No acute concerns per discussion with nursing staff Vital Signs: Vital Signs Vital Signs Date Time Temp Pulse Resp B/P (MAP) Pulse Ox O2 Delivery O2 Flow Rate FiO2 06/24/21 06:00 45 20 162/70 (100) 94 BiPAP/CPAP 06/24/21 04:00 97.3 97.3 06/23/21 11:43 40.0 Physical Exam: PHYSICAL EXAM GENERAL: Alert, oriented gentleman, not in distress. VITAL SIGNS: Stable, afebrile. HEENT: NAD. NECK: Supple. No JVP.RT subclavian line clean LUNGS: Clear. HEART: S1, S2 regular. ABDOMEN: Soft, nontender. No organomegaly. SKIN: The patient has all over the body occasional erythematous rash. There is no blistering. There are no macules. NEUROLOGIC: The patient is alert, awake, appropriate. No focal neurologic deficit. Medications: Inpatient Meds: Medications reviewed. Labs: Lab Laboratory Tests Test 06/23/21 11:43 06/24/21 05:40 White Blood Count 14.0 x10^3/uL (4.0-11.0) 12.0 x10^3/uL (4.0-11.0) Red Blood Count 4.43 x10^6/uL (4.30-5.70) 4.37 x10^6/uL (4.30-5.70) Hemoglobin 13.6 g/dL (13.0-17.5) 13.4 g/dL (13.0-17.5) Hematocrit 40.5 % (39.0-53.0) 40.1 % (39.0-53.0) Mean Corpuscular Volume 91 fL (79-100) 92 fL (79-100) Mean Corpuscular Hemoglobin 31 pg (25-35) 31 pg (25-35) Mean Corpuscular Hemoglobin Concent 34 g/dL (31-37) 33 g/dL (31-37) Red Cell Distribution Width 13.8 % (11.5-14.5) 13.9 % (11.5-14.5) Platelet Count 162 x10^3/uL (140-400) 107 x10^3/uL (140-400) Sodium Level 132 mmol/L (136-145) 131 mmol/L (136-145) Potassium Level 4.4 mmol/L (3.5-5.1) 5.1 mmol/L (3.5-5.1) Chloride Level 99 mmol/L (98-107) 101 mmol/L (98-107) Carbon Dioxide Level 28 mmol/L (21-32) 23 mmol/L (21-32) Anion Gap 5 (6-14) 7 (6-14) Blood Urea Nitrogen 30 mg/dL (8-26) 34 mg/dL (8-26) Creatinine 0.8 mg/dL (0.7-1.3) 0.7 mg/dL (0.7-1.3) Estimated GFR (Cockcroft-Gault) 96.1 112.1 Glucose Level 93 mg/dL (70-99) 144 mg/dL (70-99) Calcium Level 8.5 mg/dL (8.5-10.1) 8.6 mg/dL (8.5-10.1) BUN/Creatinine Ratio 49 (6-20) Total Bilirubin 0.7 mg/dL (0.2-1.0) Aspartate Amino Transf (AST/SGOT) 29 U/L (15-37) Alanine Aminotransferase (ALT/SGPT) 75 U/L (16-63) Alkaline Phosphatase 66 U/L (46-116) Total Protein 5.9 g/dL (6.4-8.2) Albumin 2.0 g/dL (3.4-5.0) Albumin/Globulin Ratio 0.5 (1.0-1.7) Objective: Assessment: 1. COVID-19 infection. 2. Pulmonary infiltrate. 3. Respiratory failure. 4. Leukocytosis on steroid Plan: Plan of Care on steroids, s/p Remdesivir supportive care D/W DAVID ROWE MD Jun 24, 2021 07:35
[2021-06-24] MEDS: LACTOBACILLUS RHAMNOSUS GG 1 CAPSULE. PO SCH ×2 (09:04→20:38)
[2021-06-24] MEDS: ENOXAPARIN 40 MG/0.4 ML SYRINGE. SQ SCH (09:04)
[2021-06-24] MEDS: NICOTINE 21MG PATCH. TD SCH (09:04)
[2021-06-24] MEDS: DEXAMETHASONE SOD PHOS 4 MG/ML VIAL IVP SCH (09:07)
[2021-06-24] MEDS: IPRATROPIUM/ALBUTEROL 20/100mcg/INH INHALER. INH SCH ×4 (09:08→20:47)
[2021-06-24] MEDS: MORPHINE SULFATE 2 MG/ML INJ. IVP PRN ×2 (10:20→20:40)
[2021-06-24] MEDS: PANTOPRAZOLE IV PUSH 40 MG VIAL. IVP SCH (11:49)
--- NOTE | 2021-06-24 12:31 | PN ---
DATE: 06/24/2021 SUBJECTIVE: The patient is resting, slightly propped up in bed, in no apparent distress. He continues to be on BiPAP machine, maintaining his oxygen saturation at 96% on FiO2 of 100%. He is complaining of dry mouth and also continues to have insomnia, although according to nursing staff, he slept more after he was started on a Precedex, did have a triple lumen central line for which he is now on TPN at 80 mL per hour. PHYSICAL EXAMINATION: GENERAL: When I examined him, he looked well and was clearly in no apparent respiratory distress. There is no pallor, jaundice, cyanosis or thyromegaly. No jugular venous distention. No limb edema. VITAL SIGNS: His heart rate was 45, blood pressure is 162/70, temperature was 97.3, respiratory rate was 20, and oxygen saturation 96% on BiPAP machine. HEAD, EYES, EARS, NOSE, AND THROAT: Normocephalic, atraumatic. NECK: Supple. HEART: Normal first and second heart sounds, no gallop or murmur. CHEST: Clear to auscultation, no crepitation or rhonchi. ABDOMEN: Slightly distended, soft, nontender. NEUROLOGIC: He was grossly intact. His intake was 746. Output was 925. LABORATORY DATA: His lab work this morning showed a white cell count 12,000, hemoglobin 13, hematocrit 40, MCV 92 and platelet count of 107,000. His chemistry showed a serum sodium 131, potassium 5.1, chloride 101, bicarbonate 23, anion gap of 7, BUN 34, creatinine 0.7. Estimated GFR was 112 mL per minute. His glucose 144, calcium was 8.6. Total bilirubin, AST, ALT, alkaline phosphatase were normal. Total protein 5.6, albumin was 2. ASSESSMENT: 1. Acute hypoxic respiratory failure, currently on BiPAP machine, maintaining his oxygen saturation at 96% on FiO2 of 100%, seemed to be more comfortable. 2. COVID-19 pneumonia, completed remdesivir, continues to be on dexamethasone. 3. The patient has underlying obstructive sleep apnea. Chest x-ray showed worsening infiltrate, markedly inflated lungs. 4. HE IS ALLERGIC TO ZITHROMAX, ROCEPHIN AND LEVAQUIN. PLAN: To continue with dexamethasone. Continue with DVT prophylaxis. Continue with Mucinex and Singulair. Continue with oxygen supplementation. Continue with Robitussin-DM every [address]: Star TID: [id number]
[2021-06-24] MEDS: DEXMEDETOMIDINE 400 MCG in IV NORMAL SALINE 100ML 96 ML IV PRN (14:00)
--- NOTE | 2021-06-24 16:00 | NUR ---
SS following up with discharge planning. SS reviewed pt chart and discussed with pt RN. Pt is currently requiring BIPAP at 100%. COVID19 positive. Pt on Precedex and IV Decadron. Pt on Clinimix. SS will continue to follow for discharge planning.
[2021-06-24] MEDS ORDERED: SALIVA STIMULANT AGENT 44ML SPRAY BOTTLE. PO PRN (16:30)
[2021-06-24] MEDS: AA 4.25 %/CALCIUM/LYTES/D5W 1,000 ML IV SCH (16:42)
[2021-06-24] MEDS: MONTELUKAST SODIUM 10 MG TABLET. PO SCH (20:38)
[2021-06-24] MEDS: traZODone 50 MG TABLET. PO SCH (20:38)
[2021-06-25] VITALS (24 sets, daily range): BP systolic 110–145; BP diastolic 68–93
[2021-06-25] MEDS: AA 4.25 %/CALCIUM/LYTES/D5W 1,000 ML IV SCH ×2 (06:18→18:12)
[2021-06-25 06:50] LABS: CALCIUM 8.8 mg/dL (8.5-10.1); CREATININE 0.8 mg/dL (0.7-1.3); GFR 96.1; POTASSIUM 5.1 mmol/L (3.5-5.1)
--- NOTE | 2021-06-25 08:00 | PDOC ---
Infectious Disease Note Subjective: Subjective Patient remains on BiPAP Alert awake Vital Signs: Vital Signs Vital Signs Date Time Temp Pulse Resp B/P (MAP) Pulse Ox O2 Delivery O2 Flow Rate FiO2 06/25/21 06:00 43 20 144/72 (96) 94 BiPAP/CPAP 06/25/21 04:00 97.2 97.2 06/24/21 21:10 40.0 Physical Exam: PHYSICAL EXAM GENERAL: Alert, awake gentleman, on BiPAP HEENT: no icterus NECK: Supple. .RT subclavian line clean LUNGS: Clear. HEART: S1, S2 regular. ABDOMEN: Soft, nontender. No organomegaly. SKIN: No generalized rash NEUROLOGIC: Alert awake Medications: Inpatient Meds: Medications reviewed. Labs: Lab Laboratory Tests Test 06/25/21 06:05 Sodium Level 131 mmol/L (136-145) Potassium Level 5.1 mmol/L (3.5-5.1) Chloride Level 99 mmol/L (98-107) Carbon Dioxide Level 27 mmol/L (21-32) Anion Gap 5 (6-14) Blood Urea Nitrogen 33 mg/dL (8-26) Creatinine 0.8 mg/dL (0.7-1.3) Estimated GFR (Cockcroft-Gault) 96.1 Glucose Level 126 mg/dL (70-99) Calcium Level 8.8 mg/dL (8.5-10.1) Objective: Assessment: 1. COVID-19 infection. 2. Pulmonary infiltrate. 3. Respiratory failure. 4. Leukocytosis on steroid Plan: Plan of Care on steroids, s/p Remdesivir supportive care monitor labs D/W DAVID ROWE MD Jun 25, 2021 08:00
[2021-06-25] MEDS: PANTOPRAZOLE IV PUSH 40 MG VIAL. IVP SCH (08:16)
[2021-06-25] MEDS: NICOTINE 21MG PATCH. TD SCH (08:17)
[2021-06-25] MEDS: guaiFENesin DM 200MG/20MG 10 ML SYRUP PO PRN (08:17)
[2021-06-25] MEDS: DEXAMETHASONE SOD PHOS 4 MG/ML VIAL IVP SCH (08:17)
[2021-06-25] MEDS: LACTOBACILLUS RHAMNOSUS GG 1 CAPSULE. PO SCH ×2 (08:17→21:25)
[2021-06-25] MEDS: ENOXAPARIN 40 MG/0.4 ML SYRINGE. SQ SCH (08:17)
[2021-06-25] MEDS: IPRATROPIUM/ALBUTEROL 20/100mcg/INH INHALER. INH SCH ×4 (08:17→20:00)
--- NOTE | 2021-06-25 08:24 | PDOC ---
PULMONARY PROGRESS NOTES DATE: 06/25/21 TIME: 08:24 Subjective Patient remains on BiPAP at 100% Overnight concerns from nursing Vitals Vital Signs Date Time Temp Pulse Resp B/P (MAP) Pulse Ox O2 Delivery O2 Flow Rate FiO2 06/25/21 06:00 43 20 144/72 (96) 94 BiPAP/CPAP 06/25/21 04:00 97.2 97.2 06/24/21 21:10 40.0 Comments pt seen during id- pandemic visual exam performed nina BIPAP 100% no distress no obvious rash or edema Labs Laboratory Tests Test 06/23/21 11:43 06/24/21 05:40 06/25/21 06:05 White Blood Count 14.0 x10^3/uL (4.0-11.0) 12.0 x10^3/uL (4.0-11.0) Red Blood Count 4.43 x10^6/uL (4.30-5.70) 4.37 x10^6/uL (4.30-5.70) Hemoglobin 13.6 g/dL (13.0-17.5) 13.4 g/dL (13.0-17.5) Hematocrit 40.5 % (39.0-53.0) 40.1 % (39.0-53.0) Mean Corpuscular Volume 91 fL (79-100) 92 fL (79-100) Mean Corpuscular Hemoglobin 31 pg (25-35) 31 pg (25-35) Mean Corpuscular Hemoglobin Concent 34 g/dL (31-37) 33 g/dL (31-37) Red Cell Distribution Width 13.8 % (11.5-14.5) 13.9 % (11.5-14.5) Platelet Count 162 x10^3/uL (140-400) 107 x10^3/uL (140-400) Sodium Level 132 mmol/L (136-145) 131 mmol/L (136-145) 131 mmol/L (136-145) Potassium Level 4.4 mmol/L (3.5-5.1) 5.1 mmol/L (3.5-5.1) 5.1 mmol/L (3.5-5.1) Chloride Level 99 mmol/L (98-107) 101 mmol/L (98-107) 99 mmol/L (98-107) Carbon Dioxide Level 28 mmol/L (21-32) 23 mmol/L (21-32) 27 mmol/L (21-32) Anion Gap 5 (6-14) 7 (6-14) 5 (6-14) Blood Urea Nitrogen 30 mg/dL (8-26) 34 mg/dL (8-26) 33 mg/dL (8-26) Creatinine 0.8 mg/dL (0.7-1.3) 0.7 mg/dL (0.7-1.3) 0.8 mg/dL (0.7-1.3) Estimated GFR (Cockcroft-Gault) 96.1 112.1 96.1 Glucose Level 93 mg/dL (70-99) 144 mg/dL (70-99) 126 mg/dL (70-99) Calcium Level 8.5 mg/dL (8.5-10.1) 8.6 mg/dL (8.5-10.1) 8.8 mg/dL (8.5-10.1) BUN/Creatinine Ratio 49 (6-20) Total Bilirubin 0.7 mg/dL (0.2-1.0) Aspartate Amino Transf (AST/SGOT) 29 U/L (15-37) Alanine Aminotransferase (ALT/SGPT) 75 U/L (16-63) Alkaline Phosphatase 66 U/L (46-116) Total Protein 5.9 g/dL (6.4-8.2) Albumin 2.0 g/dL (3.4-5.0) Albumin/Globulin Ratio 0.5 (1.0-1.7) Laboratory Tests Test 06/25/21 06:05 Sodium Level 131 mmol/L (136-145) Potassium Level 5.1 mmol/L (3.5-5.1) Chloride Level 99 mmol/L (98-107) Carbon Dioxide Level 27 mmol/L (21-32) Anion Gap 5 (6-14) Blood Urea Nitrogen 33 mg/dL (8-26) Creatinine 0.8 mg/dL (0.7-1.3) Estimated GFR (Cockcroft-Gault) 96.1 Glucose Level 126 mg/dL (70-99) Calcium Level 8.8 mg/dL (8.5-10.1) Impression . IMPRESSION: 1. Acute hypoxemic respiratory failure due to ARDS/acute lung injury from COVID-19 viral pneumonia. 2. COVID-19 viral pneumonia. 3. Possible bacterial pneumonia. 4. Acute exacerbation of chronic obstructive pulmonary disease. 5. Fever secondary to above--resolved 6. Tobacco dependence. 7. Underlying chronic obstructive pulmonary disease, unknown forced expiratory volume 1. 8. Anxiety disorder Plan . Updated 06/25/21 Continue current supplemental oxygen to keep oxygen saturation greater than 92%, currently on 100% BIPAP Chest x-ray/ABG S/P remdesivir Continue steroids started on 06/15/21, will need full 10-day course infectious disease recommendations in regards to antibiotics-- currently off antibiotics Continue PPN for nutritional support DVT/GI PPX:lovenox D/W RN and RT Updated 06/24/21 Continue current supplemental oxygen to keep oxygen saturation greater than 92%, currently on 100% BIPAP Chest x-ray/ABG S/P remdesivir Continue steroids started on 06/15/21, will need full 10-day course infectious disease recommendations in regards to antibiotics-- currently off antibiotics Continue PPN for nutritional support DVT/GI PPX:lovenox D/W RN and RT Critical care time 30 minutes in includes discussion with RN/RT review of the labs and decision making Updated 06/23/21 Continue current supplemental oxygen to keep oxygen saturation greater than 92%, currently on 100% BIPAP And unable to tolerate Precedex secondary to bradycardia Chest x-ray/ABG Continue remdesivir for full course Continue steroids started on 06/15/21, will need full 10-day course infectious disease recommendations in regards to antibiotics, completed full course of Rocephin and azithromycin, currently off antibiotics Continue PPN for nutritional support DVT/GI PPX:lovenox D/W RN and RT Critical care time 30 minutes in includes discussion with RN/RT review of the labs and decision making Updated 06/22/21 Continue BiPAP at 100% FiO2. Patient is comfortable oxygen saturations in the low 90s. ABGs from today shows respiratory alkalosis, likely secondary to metabolic acidosis. We will give 1 amp of bicarb. We will monitor respiratory status closely. At this time I do not think he needs intubation. Continue remdesivir. Continue steroids started on 06/15/21 Continue ABX on azithro/rocephin BC NGTD DVT/GI PPX:lovenox D/W RN Continue present treatment Cough suppressants. As needed meds for anxiety. Critical care time 30 minutes in includes discussion with RN/RT review of the labs and decision making RICO WISE MD Jun 25, 2021 08:24
[2021-06-25] MEDS: DEXMEDETOMIDINE 400 MCG in IV NORMAL SALINE 100ML 96 ML IV PRN ×2 (08:33→23:41)
[2021-06-25] MEDS: MORPHINE SULFATE 2 MG/ML INJ. IVP PRN ×4 (08:48→21:24)
[2021-06-25 08:59] LABS: BASE EXCESS ABG 0 mmol/L (-3-3); HCO3 ABG 22 mmol/L (21-28); PCO2 ABG 27 mmHg (35-46); PO2 ABG 52 mmHg (65-108); SAT O2 ABG 88 % (92-99)
[2021-06-25 09:12] LABS: FIO2 ABG 100% BIPAP
--- NOTE | 2021-06-25 13:16 | PN ---
DATE: 06/25/2021 SUBJECTIVE: The patient is resting, slightly propped up in bed, in no apparent distress. He is awake, alert. He is on BiPAP machine with an FiO2 of 100%. He is also on 6 liters by nasal cannula, maintaining his oxygen saturation around 92%. On questioning him, he denied any chest pain or shortness of breath. Denied any cough, phlegm or hemoptysis. PHYSICAL EXAMINATION: GENERAL: When I examined him, he looked well and was clearly in no apparent respiratory distress. No pallor, jaundice, cyanosis or thyromegaly. No jugular venous distention. No lower limb edema. VITAL SIGNS: His heart rate was 54, blood pressure is 144/72, temperature was 97.9, respiratory rate was 20 and oxygen saturation was 90%. HEAD, EYES, EARS, NOSE, EYES, EARS, NOSE, AND THROAT: Normocephalic, atraumatic. NECK: Supple. HEART: Showed normal first and second heart sounds, no gallop, rub or murmur. CHEST: Showed central trachea, equal bilateral expansion, air entry. I could not appreciate any crepitation or rhonchi anteriorly. ABDOMEN: Scaphoid, soft, nontender. NEUROLOGIC: He was grossly intact. His intake was 2160, output was 1735. LABORATORY DATA: His most recent white cell count was 12,000, hemoglobin 13, hematocrit 40, MCV 92 and platelet count of 107,000. His chemistry as of this morning showed a serum sodium 131, potassium 5.1, chloride 99, bicarbonate 27, anion gap of 5, BUN 33, creatinine 0.8. Estimated GFR was 96 mL per minute. His glucose 126, calcium was 8.8. Blood gas this morning showed a pH of 7.52, a pCO2 of 27, pO2 of 52, oxygen saturation was 88% with 95/100% on BiPAP. ASSESSMENT: 1. Acute hypoxic respiratory failure, currently on BiPAP on FiO2 of 100% with 6 liters by nasal cannula. 2. COVID-19 pneumonia with possible superimposed bacterial pneumonia. 3. Chronic obstructive pulmonary disease exacerbation. 4. The patient is ALLERGIC TO AZITHROMYCIN, ROCEPHIN AND LEVAQUIN. PLAN: Plan is to continue with dexamethasone. Continue with TPN. Continue with trazodone for sleep. Continue nicotine patch, Singulair and bronchodilator. Also continue with DVT prophylaxis. He has hyponatremia and mild hyperkalemia. I will repeat his labs work again as well as thrombocytopenia. PORFIRIO/VINOD DR: Star TID: [id number]
--- NOTE | 2021-06-25 15:59 | NUR ---
SS following up with discharge planning. SS reviewed pt chart and discussed with pt RN. Pt is currently requiring BIPAP at 100%. COVID19 positive. Pt on Precedex. Pt on Clinimix. SS will continue to follow for discharge planning.
[2021-06-25] MEDS: traZODone 50 MG TABLET. PO SCH (21:24)
[2021-06-25] MEDS: MONTELUKAST SODIUM 10 MG TABLET. PO SCH (21:24)
[2021-06-26] VITALS (23 sets, daily range): BP systolic 97–146; BP diastolic 36–79
[2021-06-26] MEDS: MORPHINE SULFATE 2 MG/ML INJ. IVP PRN ×3 (02:44→23:20)
[2021-06-26] MEDS: AA 4.25 %/CALCIUM/LYTES/D5W 1,000 ML IV SCH ×2 (06:03→14:00)
[2021-06-26] MEDS: DEXMEDETOMIDINE 400 MCG in IV NORMAL SALINE 100ML 96 ML IV PRN ×2 (06:07→19:45)
[2021-06-26 06:08] LABS: ALBUMIN/GLOBULIN RATIO 0.5 (1.0-1.7); CALCIUM 8.8 mg/dL (8.5-10.1); CREATININE 0.8 mg/dL (0.7-1.3); GFR 96.1; POTASSIUM 5.1 mmol/L (3.5-5.1); TOTAL BILIRUBIN 0.6 mg/dL (0.2-1.0)
[2021-06-26 06:27] LABS: HEMATOCRIT 40.6 % (39.0-53.0); HEMOGLOBIN 13.6 g/dL (13.0-17.5); RED BLOOD COUNT 4.4 x10^6/uL (4.30-5.70); RED CELL DISTRIBUTION WIDTH 13.9 % (11.5-14.5); WHITE BLOOD COUNT 12.5 x10^3/uL (4.0-11.0)
[2021-06-26] MEDS: PANTOPRAZOLE IV PUSH 40 MG VIAL. IVP SCH (07:30)
--- NOTE | 2021-06-26 07:33 | PDOC ---
Infectious Disease Note Subjective: Subjective Patient on BiPAP Vital Signs: Vital Signs Vital Signs Date Time Temp Pulse Resp B/P (MAP) Pulse Ox O2 Delivery O2 Flow Rate FiO2 06/26/21 06:00 48 20 144/78 (100) 97 BiPAP/CPAP 06/26/21 04:00 97.7 97.7 06/26/21 03:14 40.0 Physical Exam: PHYSICAL EXAM GENERAL: Alert, awake gentleman, on BiPAP HEENT: no icterus NECK: Supple. .RT subclavian line clean LUNGS: Clear. HEART: S1, S2 regular. ABDOMEN: Soft, nontender. No organomegaly. SKIN: No generalized rash NEUROLOGIC: Alert awake Medications: Inpatient Meds: Medications reviewed. Labs: Lab Laboratory Tests Test 06/25/21 08:00 06/26/21 05:30 O2 Saturation 88 % (92-99) Arterial Blood pH 7.52 (7.35-7.45) Arterial Blood pCO2 at Patient Temp 27 mmHg (35-46) Arterial Blood pO2 at Patient Temp 52 mmHg (65-108) Arterial Blood HCO3 22 mmol/L (21-28) Arterial Blood Base Excess 0 mmol/L (-3-3) FiO2 100% bipap White Blood Count 12.5 x10^3/uL (4.0-11.0) Red Blood Count 4.40 x10^6/uL (4.30-5.70) Hemoglobin 13.6 g/dL (13.0-17.5) Hematocrit 40.6 % (39.0-53.0) Mean Corpuscular Volume 92 fL (79-100) Mean Corpuscular Hemoglobin 31 pg (25-35) Mean Corpuscular Hemoglobin Concent 33 g/dL (31-37) Red Cell Distribution Width 13.9 % (11.5-14.5) Platelet Count 69 x10^3/uL (140-400) D-Dimer ([place]) 15.84 ug/mlFEU (0.00-0.50) Sodium Level 130 mmol/L (136-145) Potassium Level 5.1 mmol/L (3.5-5.1) Chloride Level 98 mmol/L (98-107) Carbon Dioxide Level 28 mmol/L (21-32) Anion Gap 4 (6-14) Blood Urea Nitrogen 34 mg/dL (8-26) Creatinine 0.8 mg/dL (0.7-1.3) Estimated GFR (Cockcroft-Gault) 96.1 BUN/Creatinine Ratio 43 (6-20) Glucose Level 114 mg/dL (70-99) Calcium Level 8.8 mg/dL (8.5-10.1) Total Bilirubin 0.6 mg/dL (0.2-1.0) Aspartate Amino Transf (AST/SGOT) 19 U/L (15-37) Alanine Aminotransferase (ALT/SGPT) 69 U/L (16-63) Alkaline Phosphatase 90 U/L (46-116) Total Protein 6.0 g/dL (6.4-8.2) Albumin 2.0 g/dL (3.4-5.0) Albumin/Globulin Ratio 0.5 (1.0-1.7) Objective: Assessment: 1. COVID-19 infection. 2. Pulmonary infiltrate. 3. Respiratory failure. 4. Leukocytosis on steroid Plan: Plan of Care Cont supportive care s/p Remdesivir and steroids d/w DAVID ROWE MD Jun 26, 2021 07:33
[2021-06-26] MEDS: IPRATROPIUM/ALBUTEROL 20/100mcg/INH INHALER. INH SCH ×4 (08:00→20:00)
[2021-06-26 08:32] LABS: BASE EXCESS ABG -3 mmol/L (-3-3); HCO3 ABG 21 mmol/L (21-28); PCO2 ABG 32 mmHg (35-46); PO2 ABG 71 mmHg (65-108); SAT O2 ABG 94 % (92-99)
[2021-06-26 08:35] LABS: MAGNESIUM 2.4 mg/dL (1.8-2.4); PHOSPHORUS 3.9 mg/dL (2.6-4.7)
[2021-06-26 08:40] LABS: FIO2 ABG 100/BIPAP
[2021-06-26] MEDS: LACTOBACILLUS RHAMNOSUS GG 1 CAPSULE. PO SCH ×2 (09:00→21:38)
[2021-06-26] MEDS: NICOTINE 21MG PATCH. TD SCH (09:00)
--- NOTE | 2021-06-26 10:08 | PN ---
DATE: 06/26/2021 SUBJECTIVE: The patient is resting, slightly propped up in bed, in no apparent respiratory distress. He is actually sleeping comfortably. He is on BiPAP, maintaining his oxygen saturation at 97% on FiO2 of 100% together with 15 liters of oxygen by nasal cannula. PHYSICAL EXAMINATION: GENERAL: When I examined him, he looked well. No pallor, jaundice, cyanosis. No lymphadenopathy. No thyromegaly. No jugular venous distention. No limb edema. VITAL SIGNS: His heart rate was 49, blood pressure was 129/77, temperature was 97.7, respiratory rate was 22 and oxygen saturation was 96%. HEAD, EYES, EARS, NOSE AND THROAT: Normocephalic, atraumatic. NECK: Supple. HEART: Showed normal first and second heart sounds. No gallop, rub or murmur. CHEST: Clear to auscultation. No crepitation or rhonchi. ABDOMEN: Distended, soft, nontender. NEUROLOGIC: He was sleepy, but arousable. All cranial nerves intact. He moves extremities without difficulty. His intake was 1300, output was 1975. LABORATORY DATA: As of this morning, his white cell count was 12,500, hemoglobin 13.6, hematocrit 40, MCV 92 and platelet count of 69,000. His chemistry showed a serum sodium 130, potassium 5.1, chloride 98, bicarbonate 28, anion gap of 4, BUN 34, creatinine 0.8. Estimated GFR was 96 mL per minute. His glucose 114, calcium was 8.8, phosphorus 3.9, magnesium 2.4. Total bilirubin, AST, ALT, alkaline phosphatase were normal. Total protein 6, albumin 2. His D-dimer was up to 15.84. ASSESSMENT: 1. Acute hypoxic respiratory failure, currently on BiPAP with an FiO2 of 100% with 6 liters by nasal cannula, maintaining his oxygen saturation at 97%. 2. COVID-19 pneumonia with possible superimposed bacterial pneumonia. 3. Chronic obstructive pulmonary disease exacerbation. 4. THE PATIENT IS ALLERGIC TO AZITHROMYCIN, ROCEPHIN AND ZITHROMAX. 5. Mild hyperkalemia, hyponatremia. 6. Worsening thrombocytopenia. PLAN: Obviously to continue with PPN. Continue with Precedex. Continue with dexamethasone. Continue with Lovenox as well as ipratropium bromide and albuterol inhaler. Continue with Protonix for GI prophylaxis. AMM/ALEKSANDER DR: Star TID: [id number]
--- NOTE | 2021-06-26 10:18 | PDOC ---
PULMONARY PROGRESS NOTES DATE: 06/26/21 TIME: 10:16 Subjective Patient remains on BiPAP at 100%, with additional 6 L nasal cannula Afebrile overnight On Precedex no Overnight concerns from nursing Vitals Vital Signs Date Time Temp Pulse Resp B/P (MAP) Pulse Ox O2 Delivery O2 Flow Rate FiO2 06/26/21 08:09 96 BiPAP/CPAP 06/26/21 07:00 49 22 129/77 (94) 06/26/21 04:00 97.7 97.7 06/26/21 03:14 40.0 Comments pt seen during covid- pandemic visual exam performed nina BIPAP 100% no distress no obvious rash or edema Labs Laboratory Tests Test 06/25/21 06:05 06/25/21 08:00 06/26/21 05:30 06/26/21 08:00 Sodium Level 131 mmol/L (136-145) 130 mmol/L (136-145) Potassium Level 5.1 mmol/L (3.5-5.1) 5.1 mmol/L (3.5-5.1) Chloride Level 99 mmol/L (98-107) 98 mmol/L (98-107) Carbon Dioxide Level 27 mmol/L (21-32) 28 mmol/L (21-32) Anion Gap 5 (6-14) 4 (6-14) Blood Urea Nitrogen 33 mg/dL (8-26) 34 mg/dL (8-26) Creatinine 0.8 mg/dL (0.7-1.3) 0.8 mg/dL (0.7-1.3) Estimated GFR (Cockcroft-Gault) 96.1 96.1 Glucose Level 126 mg/dL (70-99) 114 mg/dL (70-99) Calcium Level 8.8 mg/dL (8.5-10.1) 8.8 mg/dL (8.5-10.1) O2 Saturation 88 % (92-99) 94 % (92-99) Arterial Blood pH 7.52 (7.35-7.45) 7.43 (7.35-7.45) Arterial Blood pCO2 at Patient Temp 27 mmHg (35-46) 32 mmHg (35-46) Arterial Blood pO2 at Patient Temp 52 mmHg (65-108) 71 mmHg (65-108) Arterial Blood HCO3 22 mmol/L (21-28) 21 mmol/L (21-28) Arterial Blood Base Excess 0 mmol/L (-3-3) -3 mmol/L (-3-3) FiO2 100% bipap 100/bipap White Blood Count 12.5 x10^3/uL (4.0-11.0) Red Blood Count 4.40 x10^6/uL (4.30-5.70) Hemoglobin 13.6 g/dL (13.0-17.5) Hematocrit 40.6 % (39.0-53.0) Mean Corpuscular Volume 92 fL (79-100) Mean Corpuscular Hemoglobin 31 pg (25-35) Mean Corpuscular Hemoglobin Concent 33 g/dL (31-37) Red Cell Distribution Width 13.9 % (11.5-14.5) Platelet Count 69 x10^3/uL (140-400) D-Dimer (Valencia) 15.84 ug/mlFEU (0.00-0.50) BUN/Creatinine Ratio 43 (6-20) Phosphorus Level 3.9 mg/dL (2.6-4.7) Magnesium Level 2.4 mg/dL (1.8-2.4) Total Bilirubin 0.6 mg/dL (0.2-1.0) Aspartate Amino Transf (AST/SGOT) 19 U/L (15-37) Alanine Aminotransferase (ALT/SGPT) 69 U/L (16-63) Alkaline Phosphatase 90 U/L (46-116) Total Protein 6.0 g/dL (6.4-8.2) Albumin 2.0 g/dL (3.4-5.0) Albumin/Globulin Ratio 0.5 (1.0-1.7) Laboratory Tests Test 06/26/21 05:30 06/26/21 08:00 White Blood Count 12.5 x10^3/uL (4.0-11.0) Red Blood Count 4.40 x10^6/uL (4.30-5.70) Hemoglobin 13.6 g/dL (13.0-17.5) Hematocrit 40.6 % (39.0-53.0) Mean Corpuscular Volume 92 fL (79-100) Mean Corpuscular Hemoglobin 31 pg (25-35) Mean Corpuscular Hemoglobin Concent 33 g/dL (31-37) Red Cell Distribution Width 13.9 % (11.5-14.5) Platelet Count 69 x10^3/uL (140-400) D-Dimer (Valencia) 15.84 ug/mlFEU (0.00-0.50) Sodium Level 130 mmol/L (136-145) Potassium Level 5.1 mmol/L (3.5-5.1) Chloride Level 98 mmol/L (98-107) Carbon Dioxide Level 28 mmol/L (21-32) Anion Gap 4 (6-14) Blood Urea Nitrogen 34 mg/dL (8-26) Creatinine 0.8 mg/dL (0.7-1.3) Estimated GFR (Cockcroft-Gault) 96.1 BUN/Creatinine Ratio 43 (6-20) Glucose Level 114 mg/dL (70-99) Calcium Level 8.8 mg/dL (8.5-10.1) Phosphorus Level 3.9 mg/dL (2.6-4.7) Magnesium Level 2.4 mg/dL (1.8-2.4) Total Bilirubin 0.6 mg/dL (0.2-1.0) Aspartate Amino Transf (AST/SGOT) 19 U/L (15-37) Alanine Aminotransferase (ALT/SGPT) 69 U/L (16-63) Alkaline Phosphatase 90 U/L (46-116) Total Protein 6.0 g/dL (6.4-8.2) Albumin 2.0 g/dL (3.4-5.0) Albumin/Globulin Ratio 0.5 (1.0-1.7) O2 Saturation 94 % (92-99) Arterial Blood pH 7.43 (7.35-7.45) Arterial Blood pCO2 at Patient Temp 32 mmHg (35-46) Arterial Blood pO2 at Patient Temp 71 mmHg (65-108) Arterial Blood HCO3 21 mmol/L (21-28) Arterial Blood Base Excess -3 mmol/L (-3-3) FiO2 100/bipap Impression . IMPRESSION: 1. Acute hypoxemic respiratory failure due to ARDS/acute lung injury from COVID-19 viral pneumonia.--- Ongoing 2. COVID-19 viral pneumonia. 3. Possible bacterial pneumonia. 4. Acute exacerbation of chronic obstructive pulmonary disease. 5. Fever secondary to above--resolved 6. Tobacco dependence. 7. Underlying chronic obstructive pulmonary disease, unknown forced expiratory volume 1. 8. Anxiety disorder Plan . Updated 06/26/21 Continue current supplemental oxygen to keep oxygen saturation greater than 92%, currently on 100% BIPAP and additional 6 L nasal cannula Chest x-ray/ABG--reviewed no changes today S/P remdesivir DC steroids has completed full 10-day course infectious disease recommendations in regards to antibiotics-- currently off antibiotics Continue PPN for nutritional support DVT/GI PPX:lovenox D/W RN and RT Critical care time 30 minutes Updated 06/25/21 Continue current supplemental oxygen to keep oxygen saturation greater than 92%, currently on 100% BIPAP Chest x-ray/ABG S/P remdesivir Continue steroids started on 06/15/21, will need full 10-day course infectious disease recommendations in regards to antibiotics-- currently off antibiotics Continue PPN for nutritional support DVT/GI PPX:lovenox D/W RN and RT Updated 06/24/21 Continue current supplemental oxygen to keep oxygen saturation greater than 92%, currently on 100% BIPAP Chest x-ray/ABG S/P remdesivir Continue steroids started on 06/15/21, will need full 10-day course infectious disease recommendations in regards to antibiotics-- currently off antibiotics Continue PPN for nutritional support DVT/GI PPX:lovenox D/W RN and RT Critical care time 30 minutes in includes discussion with RN/RT review of the l abs and decision making ASHLEY GAFFNEY [employer] Jun 26, 2021 10:18
--- NOTE | 2021-06-26 16:21 | NUR ---
SS following up with discharge planning. SS reviewed pt chart and discussed with pt RN. Pt is currently requiring BIPAP at 100% plus six liters nasal canula. COVID19 positive. Pt on Clinimix. Pt starting TPN tonight. SS will continue to follow for discharge planning.
[2021-06-26] MEDS: TPN PER PHARMACY MC PRN (16:46)
--- NOTE | 2021-06-26 16:47 | NUR ---
Pharmacy TPN Dosing Note S: ILIANA ROJAS is a 70 year old M Currently receiving Central Continuous TPN started 06/26/21 B:Pertinent PMH: NPO, hyperkalemia on PPN Height: 5 feet, 10 inches Weight: 72.9 kg Current diet: NPO LABS: Sodium: 130 Potassium: 5.1 Chloride: 98 Calcium: 8.8 Corrected Calcium: 10.40 Magnesium: 2.4 CO2: 28 SCr: 0.8 Glucose: 114 Albumin: 2.0 AST: 19 ALT: 69 TPN FORMULA: TPN TYPE: Central Continuous AMINO ACIDS: 60 gm DEXTROSE: 195 gm LIPIDS: 20 gm SODIUM CHLORIDE: 90 mEq POTASSIUM PHOSPHATE: 13.6 mmol MAGNESIUM: 10 mEq CALCIUM: 5 mEq MULTIPLE VITAMIN: 5 ml TRACE ELEMENTS: 1 ml TPN PLAN: -Start TPN with standard macros. -Serum potassium trending up on PPN; pt receiving ~ 60 mEq of potassium a day with PPN. Start TPN with no KCl. -Corrected calcium elevated, start TPN with calcium 5 mEq/day. -BMP, mag, phos, TG tomorrow. R: Begin TPN @ 63 ml/hr and above formula. Will monitor electrolytes, glucose, and tolerance to TPN. DENISE ARGUELLES [facility], 06/26/21 [id number]
[2021-06-26] MEDS: MONTELUKAST SODIUM 10 MG TABLET. PO SCH (21:38)
[2021-06-26] MEDS: traZODone 50 MG TABLET. PO SCH (21:38)
[2021-06-26] MEDS ORDERED: TOTAL PARENTERAL NUTRITION IV SCH (22:00)
[2021-06-26] MEDS ORDERED: AMINO ACID IV SCH (22:00)
[2021-06-26] MEDS ORDERED: [UNRECOGNIZED DRUG - OTHER] IV SCH (22:00)
[2021-06-26] MEDS ORDERED: DEXTROSE 70% IV SCH (22:00)
[2021-06-27] VITALS (26 sets, daily range): BP systolic 77–157; BP diastolic 57–95
[2021-06-27] MEDS: DEXMEDETOMIDINE 400 MCG in IV NORMAL SALINE 100ML 96 ML IV PRN ×4 (00:47→21:33)
--- NOTE | 2021-06-27 05:37 | RAD ---
Study: XR CHEST 1V Indication: Covid pneumonia. Comparison: 06/23/2021 Findings: Right subclavian central venous catheter with the tip terminating in the SVC. Unchanged cardiomediastinal silhouette and [place]. Progression in the extent of subpleural and basilar predominant airspace infiltrates. Suspected newly developed small bilateral pleural effusions with overlying volume loss. No pneumothorax. Impression: 1. Right subclavian central venous catheter terminating within the SVC. 2. More extensive subpleural/basilar airspace infiltrates from the prior. Probable newly developed sm all bilateral pleural effusions. Electronically signed by: CHELSIE NELSON MD (06/27/2021 5:34 AM) [facility]
[2021-06-27 06:09] LABS: HEMATOCRIT 41.1 % (39.0-53.0); HEMOGLOBIN 13.9 g/dL (13.0-17.5); RED BLOOD COUNT 4.47 x10^6/uL (4.30-5.70); WHITE BLOOD COUNT 11.6 x10^3/uL (4.0-11.0)
[2021-06-27 06:22] LABS: CALCIUM 8.5 mg/dL (8.5-10.1); CREATININE 0.9 mg/dL (0.7-1.3); GFR 83.9; POTASSIUM 4.6 mmol/L (3.5-5.1)
[2021-06-27 06:26] LABS: MAGNESIUM 2.3 mg/dL (1.8-2.4); PHOSPHORUS 3.3 mg/dL (2.6-4.7)
[2021-06-27] MEDS: PANTOPRAZOLE IV PUSH 40 MG VIAL. IVP SCH (07:30)
[2021-06-27] MEDS: IPRATROPIUM/ALBUTEROL 20/100mcg/INH INHALER. INH SCH ×3 (08:00→20:00)
--- NOTE | 2021-06-27 08:24 | PDOC ---
Infectious Disease Note Subjective: Subjective Patient remains on BiPAP " Says is thirsty" Vital Signs: Vital Signs Vital Signs Date Time Temp Pulse Resp B/P (MAP) Pulse Ox O2 Delivery O2 Flow Rate FiO2 06/27/21 07:00 60 27 100/66 (77) 96 BiPAP/CPAP 06/27/21 04:00 98.2 98.2 06/26/21 23:54 40.0 Physical Exam: PHYSICAL EXAM GENERAL: Alert, awake gentleman, on BiPAP HEENT: no icterus NECK: Supple. .RT subclavian line clean LUNGS: Clear. HEART: S1, S2 regular. ABDOMEN: Soft, nontender. No organomegaly. SKIN: No generalized rash NEUROLOGIC: Alert awake Medications: Inpatient Meds: Medications reviewed. Labs: Lab Laboratory Tests Test 06/27/21 05:50 White Blood Count 11.6 x10^3/uL (4.0-11.0) Red Blood Count 4.47 x10^6/uL (4.30-5.70) Hemoglobin 13.9 g/dL (13.0-17.5) Hematocrit 41.1 % (39.0-53.0) Mean Corpuscular Volume 92 fL (79-100) Mean Corpuscular Hemoglobin 31 pg (25-35) Mean Corpuscular Hemoglobin Concent 34 g/dL (31-37) Red Cell Distribution Width 14.0 % (11.5-14.5) Platelet Count 36 x10^3/uL (140-400) Sodium Level 129 mmol/L (136-145) Potassium Level 4.6 mmol/L (3.5-5.1) Chloride Level 99 mmol/L (98-107) Carbon Dioxide Level 24 mmol/L (21-32) Anion Gap 6 (6-14) Blood Urea Nitrogen 36 mg/dL (8-26) Creatinine 0.9 mg/dL (0.7-1.3) Estimated GFR (Cockcroft-Gault) 83.9 Glucose Level 125 mg/dL (70-99) Calcium Level 8.5 mg/dL (8.5-10.1) Phosphorus Level 3.3 mg/dL (2.6-4.7) Magnesium Level 2.3 mg/dL (1.8-2.4) Objective: Assessment: 1. COVID-19 infection. 2. Respiratory failure. Pulmonary infiltrate. 3. Thrmobocytopenia 4. Leukocytosis was on steroid Plan: Plan of Care Cont supportive care s/p Remdesivir and steroids will sign off ,call with any questions DAVID GRACE MD Jun 27, 2021 08:24
[2021-06-27] MEDS: LACTOBACILLUS RHAMNOSUS GG 1 CAPSULE. PO SCH ×2 (09:00→20:55)
[2021-06-27] MEDS: NICOTINE 21MG PATCH. TD SCH (09:00)
--- NOTE | 2021-06-27 09:34 | PDOC ---
PULMONARY PROGRESS NOTES DATE: 06/27/21 TIME: 09:31 Subjective Patient remains on BiPAP at 100%, with additional 6 L nasal cannula Afebrile overnight On Precedex Patient continues to try this mode of oxygenation. Wants to hold off on intubation. Worsening thrombocytopenia. Vitals Vital Signs Date Time Temp Pulse Resp B/P (MAP) Pulse Ox O2 Delivery O2 Flow Rate FiO2 06/27/21 08:46 95 BiPAP/CPAP 06/27/21 07:00 60 27 100/66 (77) 06/27/21 04:00 98.2 98.2 06/26/21 23:54 40.0 Comments pt seen during covid-19 pandemic visual exam performed nina BIPAP 100% no distress no obvious rash or edema Labs Laboratory Tests Test 06/26/21 05:30 06/26/21 08:00 06/27/21 05:50 White Blood Count 12.5 x10^3/uL (4.0-11.0) 11.6 x10^3/uL (4.0-11.0) Red Blood Count 4.40 x10^6/uL (4.30-5.70) 4.47 x10^6/uL (4.30-5.70) Hemoglobin 13.6 g/dL (13.0-17.5) 13.9 g/dL (13.0-17.5) Hematocrit 40.6 % (39.0-53.0) 41.1 % (39.0-53.0) Mean Corpuscular Volume 92 fL (79-100) 92 fL (79-100) Mean Corpuscular Hemoglobin 31 pg (25-35) 31 pg (25-35) Mean Corpuscular Hemoglobin Concent 33 g/dL (31-37) 34 g/dL (31-37) Red Cell Distribution Width 13.9 % (11.5-14.5) 14.0 % (11.5-14.5) Platelet Count 69 x10^3/uL (140-400) 36 x10^3/uL (140-400) D-Dimer (Valencia) 15.84 ug/mlFEU (0.00-0.50) Sodium Level 130 mmol/L (136-145) 129 mmol/L (136-145) Potassium Level 5.1 mmol/L (3.5-5.1) 4.6 mmol/L (3.5-5.1) Chloride Level 98 mmol/L (98-107) 99 mmol/L (98-107) Carbon Dioxide Level 28 mmol/L (21-32) 24 mmol/L (21-32) Anion Gap 4 (6-14) 6 (6-14) Blood Urea Nitrogen 34 mg/dL (8-26) 36 mg/dL (8-26) Creatinine 0.8 mg/dL (0.7-1.3) 0.9 mg/dL (0.7-1.3) Estimated GFR (Cockcroft-Gault) 96.1 83.9 BUN/Creatinine Ratio 43 (6-20) Glucose Level 114 mg/dL (70-99) 125 mg/dL (70-99) Calcium Level 8.8 mg/dL (8.5-10.1) 8.5 mg/dL (8.5-10.1) Phosphorus Level 3.9 mg/dL (2.6-4.7) 3.3 mg/dL (2.6-4.7) Magnesium Level 2.4 mg/dL (1.8-2.4) 2.3 mg/dL (1.8-2.4) Total Bilirubin 0.6 mg/dL (0.2-1.0) Aspartate Amino Transf (AST/SGOT) 19 U/L (15-37) Alanine Aminotransferase (ALT/SGPT) 69 U/L (16-63) Alkaline Phosphatase 90 U/L (46-116) Total Protein 6.0 g/dL (6.4-8.2) Albumin 2.0 g/dL (3.4-5.0) Albumin/Globulin Ratio 0.5 (1.0-1.7) O2 Saturation 94 % (92-99) Arterial Blood pH 7.43 (7.35-7.45) Arterial Blood pCO2 at Patient Temp 32 mmHg (35-46) Arterial Blood pO2 at Patient Temp 71 mmHg (65-108) Arterial Blood HCO3 21 mmol/L (21-28) Arterial Blood Base Excess -3 mmol/L (-3-3) FiO2 100/bipap Laboratory Tests Test 06/27/21 05:50 White Blood Count 11.6 x10^3/uL (4.0-11.0) Red Blood Count 4.47 x10^6/uL (4.30-5.70) Hemoglobin 13.9 g/dL (13.0-17.5) Hematocrit 41.1 % (39.0-53.0) Mean Corpuscular Volume 92 fL (79-100) Mean Corpuscular Hemoglobin 31 pg (25-35) Mean Corpuscular Hemoglobin Concent 34 g/dL (31-37) Red Cell Distribution Width 14.0 % (11.5-14.5) Platelet Count 36 x10^3/uL (140-400) Sodium Level 129 mmol/L (136-145) Potassium Level 4.6 mmol/L (3.5-5.1) Chloride Level 99 mmol/L (98-107) Carbon Dioxide Level 24 mmol/L (21-32) Anion Gap 6 (6-14) Blood Urea Nitrogen 36 mg/dL (8-26) Creatinine 0.9 mg/dL (0.7-1.3) Estimated GFR (Cockcroft-Gault) 83.9 Glucose Level 125 mg/dL (70-99) Calcium Level 8.5 mg/dL (8.5-10.1) Phosphorus Level 3.3 mg/dL (2.6-4.7) Magnesium Level 2.3 mg/dL (1.8-2.4) Impression . IMPRESSION: 1. Acute hypoxemic respiratory failure due to ARDS/acute lung injury from COVID-19 viral pneumonia.--- Ongoing 2. COVID-19 viral pneumonia. 3. Possible bacterial pneumonia. 4. Acute exacerbation of chronic obstructive pulmonary disease. 5. Fever secondary to above--resolved 6. Tobacco dependence. 7. Underlying chronic obstructive pulmonary disease, unknown forced expiratory volume 1. 8. Anxiety disorder 9. Thrombocytopenia, likely Covid related. Could be secondary to Lovenox/HIT Plan . Updated 06/27/21 Continue current supplemental oxygen to keep oxygen saturation greater than 92%, currently on 100% BIPAP and additional 6 L nasal cannula Chest x-ray/ABG--reviewed no changes today S/P remdesivir off steroids he has completed full 10-day course infectious disease recommendations in regards to antibiotics-- currently off antibiotics Continue PPN for nutritional support DVT/GI PPX. Discontinue Lovenox. Monitor platelet count closely. Watch for any bleeding. D/W RN and RT/discussed with Dr. Pyle Critical care time 30 minutes Addend: Patient tired out, agreed to intubation. Now on AC mode.Message left for daughter Updated 06/26/21 Continue current supplemental oxygen to keep oxygen saturation greater than 92%, currently on 100% BIPAP and additional 6 L nasal cannula Chest x-ray/ABG--reviewed no changes today S/P remdesivir DC steroids has completed full 10-day course infectious disease recommendations in regards to antibiotics-- currently off antibiotics Continue PPN for nutritional support DVT/GI PPX:lovenox D/W RN and RT Critical care time 30 minutes Updated 06/25/21 Continue current supplemental oxygen to keep oxygen saturation greater than 92%, currently on 100% BIPAP Chest x-ray/ABG S/P remdesivir Continue steroids started on 06/15/21, will need full 10-day course infectious disease recommendations in regards to antibiotics-- currently off antibiotics Continue PPN for nutritional support DVT/GI PPX:lovenox D/W RN and RT Updated 06/24/21 Continue current supplemental oxygen to keep oxygen saturation greater than 92%, currently on 100% BIPAP Chest x-ray/ABG S/P remdesivir Continue steroids started on 06/15/21, will need full 10-day course infectious disease recommendations in regards to antibiotics-- currently off antibiotics Continue PPN for nutritional support DVT/GI PPX:lovenox D/W RN and RT Critical care time 30 minutes in includes discussion with RN/RT review of the labs and decision making RICO WISE MD Jun 27, 2021 09:34
--- NOTE | 2021-06-27 10:19 | PN ---
DATE: 06/27/2021 SUBJECTIVE: The patient is resting, slightly propped up in bed, continues to be on BiPAP machine with FiO2 of 100% and 8 liters by nasal cannula. He states that he is exhausted, has not slept and also has dry mouth. When I spoke to him about intubation, he said that he is agreeable to that. He asked whether this will make him better at home, I cannot guarantee any outcome, but as the next step is he is not maintaining his oxygenation. The patient stated he would like to continue the way he is now at least for another 24 hours. PHYSICAL EXAMINATION: GENERAL: When I examined him, he looked well and was clearly in no apparent respiratory distress. There was no pallor, jaundice, cyanosis or thyromegaly. No jugular venous distention. No limb edema. VITAL SIGNS: His heart rate was 60, blood pressure was 100/66, temperature was 98.2, respiratory rate was 27 and oxygen saturation was 96% on FiO2 of 100% on BiPAP machine and 8 liters of oxygen by nasal cannula. HEAD, EYES, EARS, NOSE AND THROAT: Normocephalic, atraumatic. NECK: Supple. HEART: Showed normal first and second heart sounds. No gallop or murmur. CHEST: Shows central trachea, equally reduced expansion, reduced air entry, vesicular breath sounds. I could not appreciate any crepitation or rhonchi anteriorly. ABDOMEN: Scaphoid, soft, nontender. NEUROLOGIC: He is grossly intact. His intake over the last 24 hours was 3500, output was 1875. LABORATORY DATA: This morning showed a white cell count of 11,600, hemoglobin 14, hematocrit 41, MCV 92 and platelet count of 36,000. His serum sodium was 129, potassium 4.6, chloride 99, bicarbonate 24, anion gap of 6, BUN 36, creatinine was 0.9. Estimated GFR was 84 mL per minute. His glucose was 125 and calcium was 8.5. Phosphorus 3.3 and magnesium was 2.3. His D-dimer has risen up to 15.84. His chest x-ray showed increased or extensive subpleural basilar airspace infiltrates from the prior and probable new developed small bilateral pleural effusion. ASSESSMENT: 1. Acute hypoxic respiratory failure, currently on BiPAP with an FiO2 of 100% and 8 liters by nasal cannula, maintaining his oxygen saturation now at 95%. 2. COVID-19 pneumonia with possible superimposed bacterial pneumonia. 3. Chronic obstructive pulmonary disease exacerbation. 4. THE PATIENT IS ALLERGIC TO AZITHROMYCIN, ROCEPHIN AND LEVAQUIN. 5. Mild hyperkalemia and hyponatremia. Serum sodium is actually worse at 129, potassium is better at 4.6. His thrombocytopenia is worsening. I discontinued his Lovenox yesterday and sent blood for heparin-induced thrombocytopenia. PLAN: To obviously continue with BiPAP and oxygen supplementation. He has completed his remdesivir and dexamethasone. Continue with TPN. HEATHER DR: Star TID: [id number]
[2021-06-27] MEDS: TPN PER PHARMACY MC PRN (10:34)
--- NOTE | 2021-06-27 10:34 | NUR ---
Pharmacy TPN Dosing Note S: ILIANA ROJAS is a 70 year old M Currently receiving Central Continuous TPN started 06/26/21 B:Pertinent PMH: NPO, hyperkalemia on PPN Height: 5 feet, 10 inches Weight: 74.4 kg Current diet: NPO LABS: Sodium: 129 Potassium: 4.6 Chloride: 99 Calcium: 8.5 Corrected Calcium: 10.10 Magnesium: 2.3 CO2: 24 SCr: 0.9 Glucose: 125 Albumin: 2.0 AST: 19 ALT: 69 TPN FORMULA: TPN TYPE: Central Continuous AMINO ACIDS: 60 gm DEXTROSE: 195 gm LIPIDS: 20 gm SODIUM CHLORIDE: 120 mEq POTASSIUM PHOSPHATE: 13.6 mmol MAGNESIUM: 10 mEq CALCIUM: 5 mEq MULTIPLE VITAMIN: 5 ml TRACE ELEMENTS: 1 ml TPN PLAN: -Serum sodium trending down, daily fluid requirement ~ 2500 mL so hesitant to reduce TPN rate as pt not getting much PO intake. Increase NaCl to 120 mEq/day. -Serum potassium trending down; currently no KCl in TPN. -BMP, mag, phos, TG tomorrow. R: Continue TPN @ current rate and above formula. Will monitor electrolytes, glucose, and tolerance to TPN. DENISE ARGUELLES [facility], 06/27/21 [id number]
[2021-06-27 12:01] LABS: BASE EXCESS ABG -1 mmol/L (-3-3); HCO3 ABG 21 mmol/L (21-28); PCO2 ABG 28 mmHg (35-46); PO2 ABG 68 mmHg (65-108); SAT O2 ABG 94 % (92-99)
[2021-06-27 12:02] LABS: FIO2 ABG 100
[2021-06-27] MEDS ORDERED: VECURONIUM BOLUS 10 MG VIAL. IV ONE ×3 (12:24→15:20)
[2021-06-27] MEDS ORDERED: SUCCINYLCHOLINE 200 MG/10 ML VIAL. ONE (12:24)
[2021-06-27] MEDS ORDERED: PROPOFOL 100 ML IV PRN (12:30)
[2021-06-27] MEDS ORDERED: SUCCINYLCHOLINE 200 MG/10 ML VIAL. IV ONE (12:45)
[2021-06-27] MEDS ORDERED: PROPOFOL 10 MG/ML (20ML) VIAL. IV ONE (12:45)
[2021-06-27] MEDS: MIDAZOLAM 100mg/100ml NS BAG 100 ML IV PRN ×2 (12:47→17:46)
--- NOTE | 2021-06-27 12:58 | PDOC ---
Date of Service: DATE: 06/27/21 TIME: 12:54 Progress Note: Sedation given prior to intubation: Propofol 80mg and succinylcholine 80mg. 1244 DL performed with glidescope size 3, grade 1 view, cricoid pressure re quired to access airway with ETT. ETT 7.5mm inserted to 22cm at lip. Positive indicator change and bilateral breath sounds. Justifications for Admission Other Justification DILIP SHEA CRNA Jun 27, 2021 12:58
[2021-06-27] MEDS ORDERED: NOREPINEPHRINE VIAL 8 MG in IV DEXTROSE 5% 250 ML IV PRN (13:15)
--- NOTE | 2021-06-27 13:27 | RAD ---
EXAM: CHEST ONE VIEW. HISTORY: Line placement. COMPARISON: 06/27/2021. FINDINGS: A frontal view of the chest is obtained. An endotracheal tube has its tip 7 cm above the ca beatrice. A nasogastric tube has its tip in the stomach. A right internal jugular central venous catheter has its tip in the superior vena cava. Interstitial and airspace opacities bilaterally are not clearly changed. There is no pneumothorax or clear pleural effusion. The heart is not enlarged. IMPRESSION: 1. Bilateral diffuse interstitial and airspace infiltrates are not clearly changed. Electronically signed by: Amada Romo MD (06/27/2021 1:25 PM) [id number]
[2021-06-27 15:58] LABS: BASE EXCESS ABG -9 mmol/L (-3-3); HCO3 ABG 19 mmol/L (21-28); PCO2 ABG 52 mmHg (35-46); PO2 ABG 71 mmHg (65-108); SAT O2 ABG 90 % (92-99)
--- NOTE | 2021-06-27 16:00 | NUR ---
SS following up with discharge planning. SS reviewed pt chart and discussed with pt RN. Pt is currently intubated and on the vent at 100%. COVID19 positive. Pt on TPN. Pt on Propofol, Precedex, Fentanyl, and Versed. Not stable. SS will continue to follow for discharge planning.
[2021-06-27 16:03] LABS: FIO2 ABG 100%
[2021-06-27] MEDS ORDERED: SODIUM BICARB ADULT 8.4% 50 MEQ/50 ML DISP.SYRIN. ONE ×2 (16:27→17:04)
[2021-06-27] MEDS: MONTELUKAST SODIUM 10 MG TABLET. PO SCH (20:55)
[2021-06-27] MEDS: traZODone 50 MG TABLET. PO SCH (20:55)
[2021-06-27] MEDS ORDERED: AMINO ACID IV SCH (22:00)
[2021-06-27] MEDS ORDERED: DEXTROSE 70% IV SCH (22:00)
[2021-06-27] MEDS ORDERED: [UNRECOGNIZED DRUG - OTHER] IV SCH (22:00)
[2021-06-27] MEDS ORDERED: TOTAL PARENTERAL NUTRITION IV SCH (22:00)
[2021-06-28] VITALS (28 sets, daily range): BP systolic 80–128; BP diastolic 46–78
[2021-06-28] MEDS ORDERED: fentaNYL HIGH DOSE PCA 55 ML IV PRN (01:30)
[2021-06-28] MEDS: MIDAZOLAM 100mg/100ml NS BAG 100 ML IV PRN ×3 (03:32→23:31)
[2021-06-28] MEDS: DEXMEDETOMIDINE 400 MCG in IV NORMAL SALINE 100ML 96 ML IV PRN ×3 (04:41→21:47)
[2021-06-28 06:40] LABS: HEMATOCRIT 37.7 % (39.0-53.0); HEMOGLOBIN 12.5 g/dL (13.0-17.5); RED BLOOD COUNT 4.06 x10^6/uL (4.30-5.70); WHITE BLOOD COUNT 11.3 x10^3/uL (4.0-11.0)
[2021-06-28 06:57] LABS: ALBUMIN 1.2 g/dL (3.4-5.0); ALBUMIN/GLOBULIN RATIO 0.3 (1.0-1.7); CALCIUM 7.9 mg/dL (8.5-10.1); TOTAL PROTEIN 4.7 g/dL (6.4-8.2)
[2021-06-28 07:12] LABS: CREATININE 0.8 mg/dL (0.7-1.3); GFR 96.1; POTASSIUM 4.4 mmol/L (3.5-5.1)
[2021-06-28] MEDS: NICOTINE 21MG PATCH. TD SCH (07:36)
[2021-06-28] MEDS: IPRATROPIUM/ALBUTEROL 20/100mcg/INH INHALER. INH SCH ×2 (07:37→20:00)
[2021-06-28] MEDS: NOREPINEPHRINE VIAL 8 MG in IV DEXTROSE 5% 250 ML IV PRN ×2 (08:07→08:11)
[2021-06-28] MEDS: LACTOBACILLUS RHAMNOSUS GG 1 CAPSULE. PO SCH ×2 (08:07→21:00)
[2021-06-28] MEDS: PANTOPRAZOLE IV PUSH 40 MG VIAL. IVP SCH (08:07)
--- NOTE | 2021-06-28 08:20 | PN ---
DATE: 06/28/2021 SUBJECTIVE: The patient is intubated and currently mechanically ventilated, maintaining his oxygen saturation at 98% on FiO2 of 100%. The patient continued to be somewhat hypotensive. We did give him half a liter of normal saline last night. He continued to be on Levophed and Versed as well as fentanyl drip. OBJECTIVE: GENERAL: On examining him, there was no pallor, jaundice, cyanosis or thyromegaly. No jugular venous distention. No lower limb edema. VITAL SIGNS: His heart rate was 57, blood pressure was 88/68, mean arterial pressure of 71, temperature was 96, respiratory rate was 28 and oxygen saturation was 98% on FiO2 of 100%. HEAD, EYES, EARS, NOSE, AND THROAT: Normocephalic, atraumatic. Has orotracheal and orogastric tube. NECK: Supple. HEART: Normal first and second heart sounds. No gallop or murmur. CHEST: Showed central trachea, equally reduced expansion. Reduced air entry, vesicular breath sounds. I could not appreciate any crepitation or rhonchi anteriorly. ABDOMEN: Scaphoid, soft, nontender. NEUROLOGICAL: He is heavily sedated. His intake was 2300, output was 1200. LABORATORY DATA: As of this morning, his white cell count is 11,300, hemoglobin 12.5, hematocrit 37.7, MCV 93 and platelet count 23,000. His chemistry showed a serum sodium 135, potassium 4.4, chloride 105, bicarbonate 24, anion gap of 6, BUN 32, creatinine 0.8. Estimated GFR was 96 mL per minute. His glucose was 167, calcium was 7.9. Total bilirubin, AST, ALT were normal. Alkaline phosphatase slightly elevated. Total protein 4.7, albumin 1.2. Serum triglycerides 172. His blood gases as of yesterday showed a pH of 7.19, pCO2 of 52, pO2 of 71, bicarbonate 19 and oxygen saturation was 90% on FiO2 of 100%. ASSESSMENT: 1. Acute hypoxic respiratory failure requiring intubation and mechanical ventilation. The patient is heavily sedated on fentanyl drip, Versed drip. 2. Hypotension, for which he received IV fluids and is currently on Levophed. 3. COVID-19 pneumonia with possible superimposed bacterial pneumonia. 4. Chronic obstructive pulmonary disease exacerbation. 5. The patient is allergic to ZITHROMAX, ROCEPHIN and LEVAQUIN. 6. Mild hypokalemia. 7. Hyponatremia, resolved. 8. Thrombocytopenia. It has worsened. His platelet count is only 23,000. PLAN: 1. To continue with mechanical ventilation. 2. Continue with sedation and Levophed for hypotension. 3. Continue with dexamethasone. 4. The patient completed a course of antibiotics, remdesivir and dexamethasone. MICHAEL DR: Star TID: [id number]
[2021-06-28 08:57] LABS: MAGNESIUM 2.4 mg/dL (1.8-2.4); PHOSPHORUS 2.6 mg/dL (2.6-4.7)
[2021-06-28 09:03] LABS: BASE EXCESS ABG -3 mmol/L (-3-3); HCO3 ABG 22 mmol/L (21-28); PCO2 ABG 36 mmHg (35-46); PO2 ABG 99 mmHg (65-108); SAT O2 ABG 98 % (92-99)
[2021-06-28 09:33] LABS: FIO2 ABG 100% VENT
--- NOTE | 2021-06-28 09:50 | PDOC ---
PULMONARY PROGRESS NOTES DATE: 06/28/21 TIME: 09:47 Subjective Patient intubated 06/27/2021 due to worsening hypoxia and respiratory distress and inability to tolerate BiPAP for an extended period of time. Remains on assist control mode 100% FiO2 and 8 of PEEP Vitals Vital Signs Date Time Temp Pulse Resp B/P (MAP) Pulse Ox O2 Delivery O2 Flow Rate FiO2 06/28/21 09:34 Ventilator 06/28/21 08:19 99 06/28/21 06:00 57 28 88/63 (71) 06/28/21 04:41 40.0 06/28/21 04:00 96.0 96.0 Comments pt seen during covid-19 pandemic visual exam performed nina BIPAP 100% no distress no obvious rash or edema Labs Laboratory Tests Test 06/27/21 05:50 06/27/21 11:54 06/27/21 15:50 06/28/21 06:00 White Blood Count 11.6 x10^3/uL (4.0-11.0) 11.3 x10^3/uL (4.0-11.0) Red Blood Count 4.47 x10^6/uL (4.30-5.70) 4.06 x10^6/uL (4.30-5.70) Hemoglobin 13.9 g/dL (13.0-17.5) 12.5 g/dL (13.0-17.5) Hematocrit 41.1 % (39.0-53.0) 37.7 % (39.0-53.0) Mean Corpuscular Volume 92 fL (79-100) 93 fL (79-100) Mean Corpuscular Hemoglobin 31 pg (25-35) 31 pg (25-35) Mean Corpuscular Hemoglobin Concent 34 g/dL (31-37) 33 g/dL (31-37) Red Cell Distribution Width 14.0 % (11.5-14.5) 14.0 % (11.5-14.5) Platelet Count 36 x10^3/uL (140-400) 23 x10^3/uL (140-400) Sodium Level 129 mmol/L (136-145) 135 mmol/L (136-145) Potassium Level 4.6 mmol/L (3.5-5.1) 4.4 mmol/L (3.5-5.1) Chloride Level 99 mmol/L (98-107) 105 mmol/L (98-107) Carbon Dioxide Level 24 mmol/L (21-32) 24 mmol/L (21-32) Anion Gap 6 (6-14) 6 (6-14) Blood Urea Nitrogen 36 mg/dL (8-26) 32 mg/dL (8-26) Creatinine 0.9 mg/dL (0.7-1.3) 0.8 mg/dL (0.7-1.3) Estimated GFR (Cockcroft-Gault) 83.9 96.1 Glucose Level 125 mg/dL (70-99) 167 mg/dL (70-99) Calcium Level 8.5 mg/dL (8.5-10.1) 7.9 mg/dL (8.5-10.1) Phosphorus Level 3.3 mg/dL (2.6-4.7) 2.6 mg/dL (2.6-4.7) Magnesium Level 2.3 mg/dL (1.8-2.4) 2.4 mg/dL (1.8-2.4) Heparin-Induced Platelet Antibody See separate report O2 Saturation 94 % (92-99) 90 % (92-99) Arterial Blood pH 7.48 (7.35-7.45) 7.19 (7.35-7.45) Arterial Blood pCO2 at Patient Temp 28 mmHg (35-46) 52 mmHg (35-46) Arterial Blood pO2 at Patient Temp 68 mmHg (65-108) 71 mmHg (65-108) Arterial Blood HCO3 21 mmol/L (21-28) 19 mmol/L (21-28) Arterial Blood Base Excess -1 mmol/L (-3-3) -9 mmol/L (-3-3) FiO2 100 100% BUN/Creatinine Ratio 40 (6-20) Total Bilirubin 1.0 mg/dL (0.2-1.0) Aspartate Amino Transf (AST/SGOT) 25 U/L (15-37) Alanine Aminotransferase (ALT/SGPT) 54 U/L (16-63) Alkaline Phosphatase 128 U/L (46-116) Total Protein 4.7 g/dL (6.4-8.2) Albumin 1.2 g/dL (3.4-5.0) Albumin/Globulin Ratio 0.3 (1.0-1.7) Triglycerides Level 172 mg/dL (0-150) Test 06/28/21 08:00 O2 Saturation 98 % (92-99) Arterial Blood pH 7.40 (7.35-7.45) Arterial Blood pCO2 at Patient Temp 36 mmHg (35-46) Arterial Blood pO2 at Patient Temp 99 mmHg (65-108) Arterial Blood HCO3 22 mmol/L (21-28) Arterial Blood Base Excess -3 mmol/L (-3-3) FiO2 100% vent Laboratory Tests Test 06/27/21 11:54 06/27/21 15:50 06/28/21 06:00 06/28/21 08:00 O2 Saturation 94 % (92-99) 90 % (92-99) 98 % (92-99) Arterial Blood pH 7.48 (7.35-7.45) 7.19 (7.35-7.45) 7.40 (7.35-7.45) Arterial Blood pCO2 at Patient Temp 28 mmHg (35-46) 52 mmHg (35-46) 36 mmHg (35-46) Arterial Blood pO2 at Patient Temp 68 mmHg (65-108) 71 mmHg (65-108) 99 mmHg (65-108) Arterial Blood HCO3 21 mmol/L (21-28) 19 mmol/L (21-28) 22 mmol/L (21-28) Arterial Blood Base Excess -1 mmol/L (-3-3) -9 mmol/L (-3-3) -3 mmol/L (-3-3) FiO2 100 100% 100% vent White Blood Count 11.3 x10^3/uL (4.0-11.0) Red Blood Count 4.06 x10^6/uL (4.30-5.70) Hemoglobin 12.5 g/dL (13.0-17.5) Hematocrit 37.7 % (39.0-53.0) Mean Corpuscular Volume 93 fL (79-100) Mean Corpuscular Hemoglobin 31 pg (25-35) Mean Corpuscular Hemoglobin Concent 33 g/dL (31-37) Red Cell Distribution Width 14.0 % (11.5-14.5) Platelet Count 23 x10^3/uL (140-400) Sodium Level 135 mmol/L (136-145) Potassium Level 4.4 mmol/L (3.5-5.1) Chloride Level 105 mmol/L (98-107) Carbon Dioxide Level 24 mmol/L (21-32) Anion Gap 6 (6-14) Blood Urea Nitrogen 32 mg/dL (8-26) Creatinine 0.8 mg/dL (0.7-1.3) Estimated GFR (Cockcroft-Gault) 96.1 BUN/Creatinine Ratio 40 (6-20) Glucose Level 167 mg/dL (70-99) Calcium Level 7.9 mg/dL (8.5-10.1) Phosphorus Level 2.6 mg/dL (2.6-4.7) Magnesium Level 2.4 mg/dL (1.8-2.4) Total Bilirubin 1.0 mg/dL (0.2-1.0) Aspartate Amino Transf (AST/SGOT) 25 U/L (15-37) Alanine Aminotransferase (ALT/SGPT) 54 U/L (16-63) Alkaline Phosphatase 128 U/L (46-116) Total Protein 4.7 g/dL (6.4-8.2) Albumin 1.2 g/dL (3.4-5.0) Albumin/Globulin Ratio 0.3 (1.0-1.7) Triglycerides Level 172 mg/dL (0-150) Impression . IMPRESSION: 1. Acute hypoxemic respiratory failure due to ARDS/acute lung injury from COVID-19 viral pneumonia.--- Intubated 06/27/2021 due to worsening hypoxia. 2. COVID-19 viral pneumonia. 3. Possible bacterial pneumonia. 4. Acute exacerbation of chronic obstructive pulmonary disease. 5. Fever secondary to above--resolved 6. Tobacco dependence. 7. Underlying chronic obstructive pulmonary disease, unknown forced expiratory volume 1. 8. Anxiety disorder 9. Thrombocytopenia, likely Covid related. Could be secondary to Lovenox/HIT Plan . Updated 06/28/21 Continue current assist control mode. Wean FiO2 and PEEP based on ABGs. Chest x-ray/ABG--reviewed. See orders S/P remdesivir off steroids he has completed full 10-day course infectious disease recommendations in regards to antibiotics-- Continue PPN for nutritional support DVT/GI PPX. Off Lovenox. Monitor platelet count closely. Watch for any bleeding. Hematology has been consulted D/W RN and RT/discussed with Dr. Pyle Critical care time 30 minutes Updated 06/27/21 Continue current supplemental oxygen to keep oxygen saturation greater than 92%, currently on 100% BIPAP and additional 6 L nasal cannula Chest x-ray/ABG--reviewed no changes today S/P remdesivir off steroids he has completed full 10-day course infectious disease recommendations in regards to antibiotics-- currently off antibiotics Continue PPN for nutritional support DVT/GI PPX. Discontinue Lovenox. Monitor platelet count closely. Watch for any bleeding. D/W RN and RT/discussed with Dr. Pyle Critical care time 30 minutes Addend: Patient tired out, agreed to intubation. Now on AC mode.Message left for daughter Updated 06/26/21 Continue current supplemental oxygen to keep oxygen saturation greater than 92%, currently on 100% BIPAP and additional 6 L nasal cannula Chest x-ray/ABG--reviewed no changes today S/P remdesivir DC steroids has completed full 10-day course infectious disease recommendations in regards to antibiotics-- currently off antibiotics Continue PPN for nutritional support DVT/GI PPX:lovenox D/W RN and RT Critical care time 30 minutes Updated 06/25/21 Continue current supplemental oxygen to keep oxygen saturation greater than 92%, currently on 100% BIPAP Chest x-ray/ABG S/P remdesivir Continue steroids started on 06/15/21, will need full 10-day course infectious disease recommendations in regards to antibiotics-- currently off antibiotics Continue PPN for nutritional support DVT/GI PPX:lovenox D/W RN and RT Updated 06/24/21 Continue current supplemental oxygen to keep oxygen saturation greater than 92%, currently on 100% BIPAP Chest x-ray/ABG S/P remdesivir Continue steroids started on 06/15/21, will need full 10-day course infectious disease recommendations in regards to antibiotics-- currently off antibiotics Continue PPN for nutritional support DVT/GI PPX:lovenox D/W RN and RT Critical care time 30 minutes in includes discussion with RN/RT review of the labs and decision making RICO WISE MD Jun 28, 2021 09:50
[2021-06-28] MEDS: TPN PER PHARMACY MC PRN (11:14)
--- NOTE | 2021-06-28 11:22 | NUR ---
Pharmacy TPN Dosing Note S: ILIANA ROJAS is a 70 year old M Currently receiving Central Continuous TPN started 06/26/21 B:Pertinent PMH: NPO, hyperkalemia on PPN Height: 5 feet, 10 inches Weight: 74.2 kg Current diet: NPO LABS: Sodium: 135 Potassium: 4.4 Chloride: 105 Calcium: 7.9 Corrected Calcium: 10.14 Magnesium: 2.4 CO2: 24 SCr: 0.8 Glucose: 167 Albumin: 1.2 AST: 25 ALT: 54 TPN FORMULA: TPN TYPE: Central Continuous AMINO ACIDS: 60 gm DEXTROSE: 195 gm LIPIDS: 20 gm SODIUM CHLORIDE: 120 mEq POTASSIUM PHOSPHATE: 13.6 mmol MAGNESIUM: 10 mEq CALCIUM: 5 mEq MULTIPLE VITAMIN: 5 ml TRACE ELEMENTS: 1 ml(s) TPN PLAN: Continue same R: Continue TPN Will monitor electrolytes, glucose, and tolerance to TPN. Nina Anand RPH, 06/28/21 1122
[2021-06-28] MEDS ORDERED: VECURONIUM BOLUS 10 MG VIAL. IV ONE (15:27)
[2021-06-28] MEDS: VECURONIUM BOLUS 10 MG VIAL. IV PRN ×2 (15:38→21:50)
[2021-06-28] MEDS: traZODone 50 MG TABLET. PO SCH (21:18)
[2021-06-28] MEDS: MONTELUKAST SODIUM 10 MG TABLET. PO SCH (21:18)
[2021-06-28] MEDS ORDERED: DEXTROSE 70% IV SCH (22:00)
[2021-06-28] MEDS ORDERED: AMINO ACID IV SCH (22:00)
[2021-06-28] MEDS ORDERED: TOTAL PARENTERAL NUTRITION IV SCH (22:00)
[2021-06-28] MEDS ORDERED: [UNRECOGNIZED DRUG - OTHER] IV SCH (22:00)
[2021-06-28 23:00] LABS: BASE EXCESS ABG -6 mmol/L (-3-3); HCO3 ABG 24 mmol/L (21-28); SAT O2 ABG 72 % (92-99)
--- NOTE | 2021-06-28 23:01 | RAD ---
Exam: Chest one view INDICATION: Desaturation TECHNIQUE: Frontal view of the chest Comparisons: 06/27/2021 FINDINGS: Endotracheal tube with tip approximately 4 cm above the kezia. Enteric tube traverses below the diap hragm, distal extent not visualized. There is a right-sided central venous catheter with tip at the S VC. The cardiomediastinal silhouette and pulmonary vessels are within normal limits. Extensive bilateral airspace disease. No pleural effusion. IMPRESSION: 1. Lines and tubes described above. 2. Extensive bilateral airspace disease, worsened when compared to the prior exam. Electronically signed by: Madhuri Solomon MD (06/28/2021 10:58 PM) [facility]
[2021-06-28 23:02] LABS: PCO2 ABG 63 mmHg (35-46); PO2 ABG 45 mmHg (65-108)
[2021-06-28 23:03] LABS: FIO2 ABG 100% VT 500 Peep 12
--- NOTE | 2021-06-28 23:12 | NUR ---
patient stacking breath, O2 sats 92% Vecuronium given- patient O2 sats cont to drop ( 66) . Suctioning done, RTT paged, ABG done, CXR - vent changed Dr Topete notifited of changes. no new orders at this time
[2021-06-29] VITALS (8 sets, daily range): BP systolic 80–111; BP diastolic 40–77
[2021-06-29] MEDS ORDERED: FUROSEMIDE 40 MG/4 ML VIAL. IVP ONE (01:00)
[2021-06-29] MEDS: VECURONIUM BOLUS 10 MG VIAL. IV PRN (01:50)
[2021-06-29 06:16] LABS: HEMATOCRIT 47.2 % (39.0-53.0); HEMOGLOBIN 15.5 g/dL (13.0-17.5); RED BLOOD COUNT 4.96 x10^6/uL (4.30-5.70); RED CELL DISTRIBUTION WIDTH 14.6 % (11.5-14.5); WHITE BLOOD COUNT 26.6 x10^3/uL (4.0-11.0)
[2021-06-29 06:31] LABS: MAGNESIUM 2.5 mg/dL (1.8-2.4); PHOSPHORUS 5.8 mg/dL (2.6-4.7)
[2021-06-29] MEDS: DEXMEDETOMIDINE 400 MCG in IV NORMAL SALINE 100ML 96 ML IV PRN (06:31)
[2021-06-29 06:32] LABS: ALBUMIN 1.1 g/dL (3.4-5.0); ALBUMIN/GLOBULIN RATIO 0.3 (1.0-1.7); CALCIUM 8.3 mg/dL (8.5-10.1); CREATININE 1.4 mg/dL (0.7-1.3); GFR 50.4; TOTAL BILIRUBIN 1.6 mg/dL (0.2-1.0); TOTAL PROTEIN 5.3 g/dL (6.4-8.2)
[2021-06-29 06:35] LABS: POTASSIUM 6.1 mmol/L (3.5-5.1)
--- NOTE | 2021-06-29 06:57 | NUR ---
called spoke to Daughter (jade) regarding overall decline in status.. nakita to talking with family regarding plan of care
[2021-06-29] MEDS ORDERED: CALCIUM GLUCONATE 1,000 MG/10 ML VIAL. IVP ONE (07:30)
[2021-06-29] MEDS ORDERED: SODIUM BICARB ADULT 8.4% 50 MEQ/50 ML DISP.SYRIN. IV ONE (07:30)
[2021-06-29] MEDS ORDERED: DEXTROSE 50% 25 GM / 50ML DISP.SYRIN. IV ONE (07:30)
[2021-06-29] MEDS ORDERED: INSULIN REGULAR 100 UNIT/ML 3ML VIAL. IV ONE (07:30)
[2021-06-29] MEDS ORDERED: VASOPRESSIN 20 UNIT in IV DEXTROSE 5% 100ML 100 ML IV PRN (08:00)
--- NOTE | 2021-06-29 08:11 | NUR ---
Pt assessed by 2 RNs at 0811, pt has no response verbal or tactile stimulus, no breathe sounds, resp chest movement or apical heartbeat for 1 min. No gag reflex, no pupillary response to light. Dr Pyle and Dr Topete notified of .
[2021-06-29] MEDS ORDERED: EPINEPHrine VIAL 5 MG in IV NORMAL SALINE 250ML 250 ML IV PRN (08:15)
--- NOTE | 2021-06-29 08:30 | NUR ---
0736 Pt ORS widened, rapid decline in heart rate on monitor nurse to bedside, no pulse. CODE BLUE called CPR initiated-see code sheet. 0745 Family called to report status, daughter said she would be on the way. 0811 Code called at 0811, daughter called to report of father. 0850 Family in ICU-belongings given to Nina-clothing, glasses x2, cell phone, muleser
--- NOTE | 2021-06-29 08:59 | PHYS DOC ---
CODE REPORT CODE REPORT Physician CODE DOCUMENTATION: I was called to a CODE BLUE to the ICU for 70-year-old male who was admitted with COVID-19 pneumonia and ARDS. I was alerted that the patient was on low dose levophed and intubated on 100% FiO2, PEEP 12, TV 58, respiratory rate 28 and satting 77% on these settings prior to arrest. Per RN report initial rhythm was tachycardic, becoming bradycardic with a wide QRS, then transitioned to asystole. Compressions were started at 0736. When I arrived the patient was in wide-complex PEA. His a.m. labs showed a potassium of 6.1. He was given bicarb x3, calcium chloride x2, insulin 10 units, and an amp of D50 in an attempt to stabilize his potential hyperkalemia. He achieved ROSC on 2 separate occasions. After his initial ROSC, his Levophed was titrated up from 0.03 to 1.0 and a second pressor, vaso pressin, was added. He re-arrested, but we were able to achieve ROS once again. He maintained ROSC for a few minutes with initial EtCo2 of 48. His breath sounds were present bilaterally without evidence of PTX. We were unable to get a reliable sat at any point during the resuscitation. We were working on obtaining an EKG and ABG when the patient started to nina down from 120 slowly to the 40s and his EtCO2 began to drop. He still had faint pulses so an amp of epinephrine was given. In total, throughout the resuscitation, he received 4 amps of epi. Despite this he lost pulses and quickly transitioned to asystole at 0811. Further resuscitative efforts were decided to be futile given his prolonged downtime and pre-existing severe ARDS; compressions were not resumed. Time of was pronounced at 0811. BRETT DAVIDSON MD Jun 29, 2021 08:59
--- NOTE | 2021-06-29 09:17 | PDOC ---
Provider Note Date of Service: DATE: 06/29/21 TIME: 09:15 Provider Note Patient coded this morning. Developed PEA arrest. Required CPR for 30 minutes. Patient did not survive. Last night patient's oxygen level further deteriorated. Chest x-ray done around midnight showed worsening diffuse alveolar infiltrates. This was clinically suspected to have diffuse alveolar hemorrhage from severe thrombocytopenia. Despite Lasix there was no improvement in oxygenation. Early this morning patient coded as discussed above and after 30 minutes of full ACLS protocol. I spoken to patient's family members who arrived later. I answered all the questions Justifications for Admission Other Justification RICO WISE MD Jun 29, 2021 09:17
--- NOTE | 2021-06-29 11:40 | DS ---
DATE OF DISCHARGE: 06/29/2021 HOSPITAL COURSE: The patient is a 70-year-old male patient who was admitted as a transfer from [facility] with a complaint of worsening shortness of breath. He was diagnosed with COVID-19 pneumonia and acute hypoxic respiratory failure with underlying chronic obstructive pulmonary disease. His oxygen requirement has steadily worsened and eventually he was on BiPAP as well as 10 liters by nasal cannula. Eventually, the patient was intubated. His thrombocytopenia has steadily worsened. Apparently last night, the patient's oxygen requirement has worsened and despite treatment with Lasix, no improvement was noted. It was felt that the patient has probably diffuse alveolar hemorrhage secondary to severe thrombocytopenia. He apparently developed pulseless electrical activity cardiac arrest and required CPR for 30 minutes. Unfortunately, the patient did not survive. CAUSE OF : Cardiorespiratory arrest, acute on chronic hypoxic respiratory failure, COVID-19 pneumonia, severe thrombocytopenia and likelihood of diffuse alveolar hemorrhage and chronic obstructive pulmonary disease. BLAYNE DR: Star TID: [id number]
== END 2021-06-29 11:35 | DRG 208 ==
LOC: 5 NORTH 18:22 → 6 SOUTH 06-17 11:27 → 1 WEST ICU 06-21 12:35
PROVIDERS: ADMIT Internal Medicine; ATTEND Internal Medicine
PROC: XW033E5 Introduction of Remdesivir Anti-infective into Peripheral Vein, Percutaneous Approach, New Technology Group 5 (ICD-10-PCS; 2021-06-15)
PROC: 5A09557 Assistance with Respiratory Ventilation, Greater than 96 Consecutive Hours, Continuous Positive Airway Pressure (ICD-10-PCS; 2021-06-21)
PROC: 0BH17EZ Insertion of Endotracheal Airway into Trachea, Via Natural or Artificial Opening (ICD-10-PCS; 2021-06-21)
PROC: 02HV33Z Insertion of Infusion Device into Superior Vena Cava, Percutaneous Approach (ICD-10-PCS; 2021-06-23)
PROC: 5A1945Z Respiratory Ventilation, 24-96 Consecutive Hours (ICD-10-PCS; principal; 2021-06-27)
PROC: 5A12012 Performance of Cardiac Output, Single, Manual (ICD-10-PCS; 2021-06-29)
DX: U07.1 COVID-19 (principal); J12.82 Pneumonia due to coronavirus disease 2019; J96.21 Acute and chronic respiratory failure with hypoxia; E87.1 Hypo-osmolality and hyponatremia; J44.0 Chronic obstructive pulmonary disease with (acute) lower respiratory infection; J44.1 Chronic obstructive pulmonary disease with (acute) exacerbation; D75.82 Heparin induced thrombocytopenia (HIT); E87.5 Hyperkalemia; E87.6 Hypokalemia; F17.200 Nicotine dependence, unspecified, uncomplicated; F41.9 Anxiety disorder, unspecified; G47.00 Insomnia, unspecified; G47.33 Obstructive sleep apnea (adult) (pediatric); I46.9 Cardiac arrest, cause unspecified; L29.9 Pruritus, unspecified; T36.1X5A Adverse effect of cephalosporins and other beta-lactam antibiotics, initial encounter; T36.3X5A Adverse effect of macrolides, initial encounter; Z79.899 Other long term (current) drug therapy; Z88.1 Allergy status to other antibiotic agents; Z88.8 Allergy status to other drugs, medicaments and biological substances; K08.89 Other specified disorders of teeth and supporting structures; Y92.89 Other specified places as the place of occurrence of the external cause
CPT/HCPCS: 36415; 36600; 71045; 80048; 80053; 82542; 82805; 82962; 83735; 84100; 84478; 85025; 85027; 85379; 86140; 87040; 94003; 94660; 94760; C9113; J0330; J0456; J0610; J0696; J1100; J1650; J1940; J1956; J2250; J2270; J2704; J3010; J3475; J3490; J7050; J7060; G0378; J7030; Q0163